=== PATIENT | female | born 1950 | race Caucasian/White ===

== ENCOUNTER 2016-07-12 18:50 | Emergency (ER) | payer MEDICAID ==
[2015-07-02 16:28] VITALS: BMI 29.3
[~2016-07-12 18:50] MED LIST: BAYER CHEWABLE81 MG PO; CARAFATE1 G PO; CELEXA20 MG PO; FANAPT1 MG PO; HYDROCODONE-APA1 TAB PO; KLONOPIN0.5 MG PO; KLONOPIN1 MG PO; LIPITOR40 MG PO; NITROSTAT0.4 MG SL; PLAVIX75 MG PO; PRILOSEC20 MG PO
== END 2016-07-12 21:15 | disposition home or self-care (01) ==
LOC: D.ER 18:50
DX: M54.5 Low back pain (principal); M54.10 Radiculopathy, site unspecified; M62.830 Muscle spasm of back; J44.9 Chronic obstructive pulmonary disease, unspecified

== ENCOUNTER 2016-10-05 19:46 | Emergency (ER) | payer MEDICARE ==
[2015-07-02 16:28] VITALS: BMI 29.3
[2016-10-05 20:50] LABS: BASOPHILS 0.2 % (0-2); EOSINOPHILS 4.6 % (0-7); HEMATOCRIT 38.3 % (36.0-48.0); HEMOGLOBIN 12.9 g/dL (12-16); IMMATURE GRANULOCYTES 0.2 % (0-5); MCH 32.6 pg (26.0-34.0); MCHC 33.7 g/dL (31.0-37.0); MCV 96.7 fL (80.0-100.0); MEAN PLATELET VOLUME 10.6 fL (7.4-10.4); MONOCYTES 9.2 % (2-11); NEUTROPHILS 45.8 % (40-80); PLATELET COUNT 145 10x3/uL (130-400); RBC 3.96 10x6/uL (4.00-5.40); RDW 13.9 % (11.5-14.5); WBC 5.2 10x3/uL (4.8-10.8)
[2016-10-05 21:31] LABS: CALCIUM 8.9 mg/dL (8.5-10.1); CARBON DIOXIDE 27.2 mmol/L (21.0-32.0); CHLORIDE - SERUM 106 mmol/L (98-107); POTASSIUM - SERUM 4.2 mmol/L (3.5-5.1); SODIUM 144 mmol/L (136-145); UREA NITROGEN 15 mg/dL (7-18); eGFR NON AFRICAN AMERICAN 59 mL/min (90-120)
[2016-10-05 21:35] LABS: CALC OSMOLALITY 289 mosm/kg (275-300); GLUCOSE 142 mg/dL (74-106); TROPONIN-I < 0.017 ng/mL (0.000-0.060)
== END 2016-10-05 21:50 | disposition home or self-care (01) ==
LOC: D.ER 19:46
PROVIDERS: Emergency Medicine; Nurse Practitioner Acute Care
DX: K59.00 Constipation, unspecified (principal); M54.5 Low back pain; J44.9 Chronic obstructive pulmonary disease, unspecified; F17.200 Nicotine dependence, unspecified, uncomplicated

== ENCOUNTER → 2016-11-10 16:37 | Outpatient (CLI) | payer MEDICARE ==
[2015-07-02 16:28] VITALS: BMI 29.3
== END | disposition home or self-care (01) ==
LOC: D.RAD 16:37
DX: M25.512 Pain in left shoulder (principal)

== ENCOUNTER → 2016-12-30 17:03 | Outpatient (CLI) | payer MEDICARE ==
[2015-07-02 16:28] VITALS: BMI 29.3
== END | disposition home or self-care (01) ==
LOC: D.MAMMO 13:45
DX: Z12.31 Encounter for screening mammogram for malignant neoplasm of breast (principal)

== ENCOUNTER 2017-01-19 12:39 | Emergency (ER) | payer MEDICARE ==
[2015-07-02 16:28] VITALS: BMI 29.3
[2017-01-19 13:33] LABS: APPEARANCE CLEAR (CLEAR); BILIRUBIN NEGATIVE (NEGATIVE); COLOR YELLOW (YELLOW); GLUCOSE NEGATIVE (NEGATIVE); KETONE NEGATIVE (NEGATIVE); LEUKOCYTE ESTERASE NEGATIVE (NEGATIVE); NITRITE NEGATIVE (NEGATIVE); PROTEIN NEGATIVE (NEGATIVE); UROBILINOGEN NORMAL (NORMAL)
[2017-01-19 13:36] LABS: BASOPHILS 0.4 % (0-2); EOSINOPHILS 4.3 % (0-7); HEMATOCRIT 37.4 % (36.0-48.0); HEMOGLOBIN 12.8 g/dL (12-16); IMMATURE GRANULOCYTES 0.2 % (0-5); LYMPHOCYTES 39.1 % (15-50); MCH 32.5 pg (26.0-34.0); MCHC 34.2 g/dL (31.0-37.0); MCV 94.9 fL (80.0-100.0); MEAN PLATELET VOLUME 10.6 fL (7.4-10.4); PLATELET COUNT 130 10x3/uL (130-400); RBC 3.94 10x6/uL (4.00-5.40); WBC 5.1 10x3/uL (4.8-10.8)
[2017-01-19 13:59] LABS: ALBUMIN 3.9 g/dL (3.4-5.0); ANION GAP 13.9 mmol/L (8-16); BILIRUBIN - TOTAL 0.35 mg/dL (0.2-1.3); CARBON DIOXIDE 26.6 mmol/L (21.0-32.0); POTASSIUM - SERUM 4.5 mmol/L (3.5-5.1); PROTEIN - SERUM 6.9 g/dL (6.4-8.2)
== END 2017-01-19 12:40 | disposition home or self-care (01) ==
LOC: D.ER 12:39
PROVIDERS: Emergency Medicine
DX: R10.9 Unspecified abdominal pain (principal); K43.9 Ventral hernia without obstruction or gangrene; F17.200 Nicotine dependence, unspecified, uncomplicated; J44.9 Chronic obstructive pulmonary disease, unspecified

== ENCOUNTER 2017-01-27 05:42 | Day surgery (SDC) | payer MEDICARE ==
[~2017-01-27] VITALS: Ht 152.4 cm; Wt 77.3 kg
--- NOTE | ~2017-01-27 | OP ---
PATIENT NAME: CL DO MEDICAL RECORD: [id number] :52 [facility] DATE: SURGEON: KAN MEJIA MD DATE OF OPERATION: 01/27/2017 REFERRED BY: Ms. Charito Engle APN. PREOPERATIVE DIAGNOSIS: Severe upper abdominal and epigastric pain out of proportion to findings on physical examination and CT scan. ADDITIONAL DIAGNOSIS: History of numerous colonic polyps in the past with most recent colonoscopy over 10 years ago by patient's history. OPERATION PERFORMED: EGD with multiple gastric antral biopsies and colonoscopy to cecum. OPERATIVE FINDINGS: Very mild to minimal atrophic appearing gastritis without bleeding or ulceration or other lesions, no significant hiatal hernia, no evidence of esophagitis or reflux, mild biliary reflux into the gastric antrum was noted and note, also the patient is status post cholecystectomy. At colonoscopy, the patient was noted to have a few scattered diverticular predominantly in the left and sigmoid colon and a lipoma of the ileocecal valve. SURGEON: Kan Mejia MD ANESTHESIA: TIVA per DEV TECHNICAL MGR. PREOPERATIVE NOTE: Ms. Do is a 66-year-old white female patient with numerous medical and psychiatric problems. She is a chronic pain patient on hydrocodone therapy for spinal pain followed by Dr. Kingsley. She has had a prior laparoscopic cholecystectomy and for an unknown period of time several months at least, the patient has had pain in the epigastric area and has been told by various practitioners that she had a hernia. CT scanning was done which did not reveal a hernia and on physical examination, I could not definitely detect the hernia, but thought that she might have just diastasis recti in the epigastrium. I recommended that she have an EGD and a colonoscopy before making a decision as to whether or not laparoscopy was indicated, etc. DESCRIPTION OF PROCEDURE: Under TIVA, the patient was placed in lateral decubitus position. The pharynx was sprayed with benzocaine and the Olympus gastroscope introduced per mouth, it was passed through the pharynx and the esophagus without difficulty. There was no abnormality of the esophagus seen. There was no hiatus hernia present or evidence of reflux or esophagitis. No rings, ulcers, masses, etc. The scope was passed on into the stomach and the stomach, insufflated. The scope retroflexed and again there was no abnormality of the esophagogastric junction, cardia or fundus of the stomach. The scope was straightened and the gastric antrum and body examined. There was some lack of rugal folds and some mild atrophic changes without evidence of any bleeding or ulceration. There was bile reflux noted through a fairly patulous duodenum. The scope was advanced across the duodenal valve into the duodenum and advanced to the third portion and then withdrawn. No abnormalities of the duodenum or duodenal bulb or pyloric channel were seen. Back in the stomach, multiple antral gastric biopsies were obtained for histology and testing for Helicobacter pylori. After that, the insufflated air was withdrawn and the scope removed. OPERATIVE REPORT [id number] CL DO The patient was then turned and kept in lateral decubitus position, digital rectal examination was performed, which was normal. The Olympus colonoscope was introduced and advanced to the cecum. Fairly intense spasm in the sigmoid colon necessitated intravenous glucagon, but the patient's prep fortunately was excellent. She had very minimal scattered diverticulosis, particularly in the sigmoid and left colon, and really no other abnormalities were identified other than an ileocecal valve lipoma. There was no bleeding or any other mucosal lesions. Withdrawal time was approximately 15 minutes. ASSESSMENT: The patient's abdominal pain is still unexplained; however, on physical examination again the upper abdomen while she was under anesthesia and that times when she was struggling and coughing and performing Valsalva maneuvers, I thought that I did detect an epigastric hernia or a lump or mass in the epigastrium, possibly related to her prior laparoscopic incision. PLAN: I recommend that the patient undergo a laparoscopic examination with possibly mesh repair of incisional hernia and/or other indicated procedures. TRANSINT:[id number] Voice Confirmation ID: [id number] DOCUMENT ID: [id number] CC: Charito Engle APN, [facility] KAN MEJIA MD CC: [id number] DICTATION DATE: 01/27/17 0847 MACHINE SILK SCREEN PRINTER: 01/27/17 1245 [facility] 01/27/17 [facility] [address] [place] [address]
[2017-01-27] MEDS ORDERED: OXYBUTYNIN CHLOR5 MG PO (06:46)
[2017-01-27] MEDS ORDERED: ZOFRAN4 MG PO (06:47)
[2017-01-27] MEDS ORDERED: ATIVAN1 MG PO (06:47)
[2017-01-27] MEDS ORDERED: EMLA CREAM 30 G30 G1 TOPICAL (06:49)
[2017-01-27 06:56] VITALS: BP 110/70; Ht 152.4 cm; Wt 77.3 kg
[2017-01-27 06:56] LABS: ANION GAP 14.2 mmol/L (8-16); CALCIUM 9.6 mg/dL (8.5-10.1); CARBON DIOXIDE 24.5 mmol/L (21.0-32.0); CREATININE - SERUM 1.1 mg/dL (0.6-1.3); POTASSIUM - SERUM 3.7 mmol/L (3.5-5.1)
[2017-01-27 07:05] LABS: BASOPHILS 0.2 % (0-2); EOSINOPHILS 4.1 % (0-7); HEMATOCRIT 39.4 % (36.0-48.0); HEMOGLOBIN 13.8 g/dL (12-16); IMMATURE GRANULOCYTES 0.2 % (0-5); LYMPHOCYTES 40.4 % (15-50); MCV 94.3 fL (80.0-100.0); MEAN PLATELET VOLUME 11.1 fL (7.4-10.4); NEUTROPHILS 45.1 % (40-80); PLATELET COUNT 126 10x3/uL (130-400); RBC 4.18 10x6/uL (4.00-5.40); RDW 12.9 % (11.5-14.5); WBC 5.9 10x3/uL (4.8-10.8)
--- NOTE | 2017-01-27 09:55 | NUR ---
IV DC WITH CATHER TIP INTACT
[2017-01-28 07:41] LABS: AMYLASE - SERUM 60 U/L (25-115); LIPASE 212 U/L (73-393)
== END 2017-01-27 10:23 | disposition home or self-care (01) ==
LOC: D.OPS 05:42
PROVIDERS: Anesthesiology; Surgery
DX: R10.11 Right upper quadrant pain (principal); R10.13 Epigastric pain; D17.79 Benign lipomatous neoplasm of other sites; K57.30 Diverticulosis of large intestine without perforation or abscess without bleeding; F17.200 Nicotine dependence, unspecified, uncomplicated; J45.909 Unspecified asthma, uncomplicated; Z95.5 Presence of coronary angioplasty implant and graft; G47.30 Sleep apnea, unspecified; J44.9 Chronic obstructive pulmonary disease, unspecified; M81.0 Age-related osteoporosis without current pathological fracture; Z01.812 Encounter for preprocedural laboratory examination

== ENCOUNTER → 2017-02-06 14:22 | Outpatient (CLI) | payer MEDICARE ==
[2017-01-27 06:56] VITALS: BMI 33.2
[~2017-02-06 14:22] MED LIST changes: +ATIVAN1 MG PO; +EMLA CREAM 30 G30 G1 TOPICAL; +OXYBUTYNIN CHLOR5 MG PO; +ZOFRAN4 MG PO
== END | disposition home or self-care (01) ==
LOC: D.NM 14:22
DX: R10.9 Unspecified abdominal pain (principal); R11.2 Nausea with vomiting, unspecified

== ENCOUNTER 2017-03-14 20:35 | Emergency (ER) | payer MEDICARE ==
[2017-01-27 06:56] VITALS: BMI 33.2
[2017-03-14 21:34] LABS: HEMATOCRIT 37.4 % (36.0-48.0); HEMOGLOBIN 12.6 g/dL (12-16); MCH 31.8 pg (26.0-34.0); MCHC 33.7 g/dL (31.0-37.0); MCV 94.4 fL (80.0-100.0); MEAN PLATELET VOLUME 10.8 fL (7.4-10.4); PLATELET COUNT 141 10x3/uL (130-400); RBC 3.96 10x6/uL (4.00-5.40); RDW 13.2 % (11.5-14.5); WBC 4.7 10x3/uL (4.8-10.8)
[2017-03-14 21:48] LABS: ALBUMIN 3.7 g/dL (3.4-5.0); ALKALINE PHOSPHATASE 112 U/L (46-116); ALT (SGPT) 24 U/L (10-68); CALC OSMOLALITY 274 mosm/kg (275-300); CALCIUM 9.1 mg/dL (8.5-10.1); CHLORIDE - SERUM 102 mmol/L (98-107); CREATININE - SERUM 1.1 mg/dL (0.6-1.3); GLUCOSE 93 mg/dL (74-106); POTASSIUM - SERUM 4.1 mmol/L (3.5-5.1); PROTEIN - SERUM 7.1 g/dL (6.4-8.2); SODIUM 138 mmol/L (136-145); UREA NITROGEN 11 mg/dL (7-18); eGFR NON AFRICAN AMERICAN 53 mL/min (90-120)
[2017-03-14 21:55] LABS: PRO BNP 84 pg/mL (0-125); TROPONIN-I < 0.017 ng/mL (0.000-0.060)
[2017-03-14 22:11] LABS: BASOPHILS 1 % (0-2); EOSINOPHILS 2 % (0-7); LYMPHOCYTES 51 % (15-50); MONOCYTES 5 % (2-11); NEUTROPHILS 31 % (40-80); PLATELET ESTIMATE NORMAL
[2017-03-14 22:12] LABS: PLATELET MORPHOLOGY GIANT PLTS PRESENT
== END 2017-03-14 22:55 | disposition home or self-care (01) ==
LOC: D.ER 20:35
PROVIDERS: Family Medicine
DX: J44.1 Chronic obstructive pulmonary disease with (acute) exacerbation (principal)

== ENCOUNTER 2017-03-30 21:09 | Emergency (ER) | payer MEDICARE ==
[2017-01-27 06:56] VITALS: BMI 33.2
== END 2017-03-30 23:19 | disposition home or self-care (01) ==
LOC: D.ER 21:09
DX: S16.1XXA Strain of muscle, fascia and tendon at neck level, initial encounter (principal); Y04.2XXA Assault by strike against or bumped into by another person, initial encounter; Y93.89 Activity, other specified; Y92.512 Supermarket, store or market as the place of occurrence of the external cause; J44.9 Chronic obstructive pulmonary disease, unspecified; F17.200 Nicotine dependence, unspecified, uncomplicated

== ENCOUNTER 2017-06-18 13:39 | Emergency (ER) | payer MEDICARE, MEDICAID ==
[2017-01-27 06:56] VITALS: BMI 33.2
[2017-06-18 14:51] LABS: BASOPHILS 0.3 % (0-2); EOSINOPHILS 5.4 % (0-7); HEMATOCRIT 36.9 % (36.0-48.0); HEMOGLOBIN 12.5 g/dL (12-16); IMMATURE GRANULOCYTES 0.3 % (0-5); LYMPHOCYTES 46.3 % (15-50); MCHC 33.9 g/dL (31.0-37.0); MCV 94.4 fL (80.0-100.0); MEAN PLATELET VOLUME 10.3 fL (7.4-10.4); MONOCYTES 8.2 % (2-11); NEUTROPHILS 39.5 % (40-80); PLATELET COUNT 113 10x3/uL (130-400); RBC 3.91 10x6/uL (4.00-5.40); RDW 13.4 % (11.5-14.5); WBC 3.5 10x3/uL (4.8-10.8)
[2017-06-18 15:11] LABS: ALBUMIN 3.7 g/dL (3.4-5.0); ANION GAP 10.8 mmol/L (8-16); BILIRUBIN - TOTAL 0.41 mg/dL (0.2-1.3); CALCIUM 8.6 mg/dL (8.5-10.1); CARBON DIOXIDE 28.6 mmol/L (21.0-32.0); CREATININE - SERUM 1.1 mg/dL (0.6-1.3); POTASSIUM - SERUM 4.4 mmol/L (3.5-5.1)
[2017-06-18 15:35] LABS: CREATINE KINASE 57 UL (21-215); PRO BNP 41 pg/mL (0-125)
[2017-06-18 15:40] LABS: TROPONIN-I < 0.017 ng/mL (0.000-0.060)
[2017-06-18 15:58] LABS: APPEARANCE HAZY (CLEAR); BILIRUBIN NEGATIVE (NEGATIVE); COLOR YELLOW (YELLOW); GLUCOSE NEGATIVE (NEGATIVE); KETONE NEGATIVE (NEGATIVE); NITRITE NEGATIVE (NEGATIVE); PROTEIN NEGATIVE (NEGATIVE); SPECIFIC GRAVITY 1.025 (1.005-1.020); UROBILINOGEN NORMAL (NORMAL)
[2017-06-18 16:00] LABS: BACTERIA MODERATE /hpf (NONE SEEN); MUCUS <1+ /lpf (NONE SEEN); RED CELLS - URINE 0-5 /hpf (0-5)
[2017-06-18 16:01] LABS: UDS - AMPHET NEGATIVE QUAL (NEGATIVE); UDS - BARB NEGATIVE QUAL (NEGATIVE); UDS - BENZO NEGATIVE QUAL (NEGATIVE); UDS - COCAINE NEGATIVE QUAL (NEGATIVE); UDS - OPIATE POSITIVE QUAL (NEGATIVE); UDS - PCP NEGATIVE QUAL (NEGATIVE); UDS - THC NEGATIVE QUAL (NEGATIVE)
== END 2017-06-18 19:39 | disposition home or self-care (01) ==
LOC: D.ER 13:39
PROVIDERS: Family Medicine; Nurse Practitioner Family
DX: N39.0 Urinary tract infection, site not specified (principal); R42 Dizziness and giddiness; R00.1 Bradycardia, unspecified; J44.9 Chronic obstructive pulmonary disease, unspecified

== ENCOUNTER 2017-08-20 09:46 | Emergency (ER) | payer MEDICARE ==
[2017-01-27 06:56] VITALS: BMI 33.2
[2017-08-20 10:14] LABS: BASOPHILS 0.4 % (0-2); EOSINOPHILS 5.9 % (0-7); HEMATOCRIT 36.7 % (36.0-48.0); HEMOGLOBIN 12.2 g/dL (12-16); IMMATURE GRANULOCYTES 0.2 % (0-5); LYMPHOCYTES 40.8 % (15-50); MCH 31.8 pg (26.0-34.0); MCHC 33.2 g/dL (31.0-37.0); MCV 95.6 fL (80.0-100.0); MEAN PLATELET VOLUME 9.9 fL (7.4-10.4); NEUTROPHILS 39.7 % (40-80); RBC 3.84 10x6/uL (4.00-5.40); RDW 13.6 % (11.5-14.5); WBC 4.8 10x3/uL (4.8-10.8)
[2017-08-20 10:28] LABS: ALBUMIN 3.7 g/dL (3.4-5.0); ALKALINE PHOSPHATASE 102 U/L (46-116); ALT (SGPT) 24 U/L (10-68); CALC OSMOLALITY 280 mosm/kg (275-300); CALCIUM 9.6 mg/dL (8.5-10.1); CARBON DIOXIDE 28.4 mmol/L (21.0-32.0); CHLORIDE - SERUM 106 mmol/L (98-107); GLUCOSE 97 mg/dL (74-106); POTASSIUM - SERUM 4.1 mmol/L (3.5-5.1); PROTEIN - SERUM 7.2 g/dL (6.4-8.2); SODIUM 141 mmol/L (136-145); UREA NITROGEN 13 mg/dL (7-18); eGFR NON AFRICAN AMERICAN 59 mL/min (90-120)
[2017-08-20 10:39] LABS: CHOL - HDL RATIO 5.6 ratio (2.3-4.1); CHOLESTEROL, TOTAL 218 mg/dL (0-200); CKMB 1.2 U/L (0.0-3.6); CREATINE KINASE 67 UL (21-215); HDL CHOLESTEROL 39 mg/dL (32-96); LDL CHOLESTEROL 149 mg/dL (0-100); LDL-HDL RATIO 3.8 ratio (1.5-3.5); TRIGLYCERIDE 151 mg/dL (30-200); TROPONIN-I < 0.017 ng/mL (0.000-0.060)
[2017-08-20 10:44] LABS: PLATELET COUNT 138 10x3/uL (130-400)
== END 2017-08-20 14:58 | disposition home or self-care (01) ==
LOC: D.ER 09:46
PROVIDERS: Emergency Medicine
DX: R07.9 Chest pain, unspecified (principal); J44.9 Chronic obstructive pulmonary disease, unspecified

== ENCOUNTER → 2018-01-01 08:38 | Outpatient (CLI) | payer MEDICARE ==
[~2018-01-01] VITALS: Ht 152.4 cm; Wt 75.0 kg
--- NOTE | ~2018-01-01 | HEMODYNAMI ---
PATIENT:CL DO MEDICAL RECORD: [id number] : 52 LOCATION:[facility] ADMISSION DATE: 01/01/18 Generatedon:01/01/201810:50 Patient name: CL DO Patient #: [id number] SSN: : 1950 Date of study: 01/01/2018 Page: Of Hemodynamic Procedure Report Patient Data Patient Demographics Procedure consent was obtained First Name: CL Gender: Female Last Name: ERNESTINA : 1950 [facility] Initial: J Age: 67 year(s) Patient #: [id number] Race: Additional ID: [id number] Contact details Address: [place] [address] [facility] [place] [facility] Zip code: [address] Past Medical History History of disease Date Diagnosis Comments CAD Allergies Allergen Reaction Date Comments Reported Other allergy 09/29/2014 Latex, Morphine, Dilaudid Admission Admission Data Admission Date: 01/01/2018 Admission Time: 8:38 Procedure Procedure Types Cath Procedure Diagnostic Procedure C [facility] w/Coronaries Procedure Description Procedure Date Procedure Date: 01/01/2018 Procedure Start Time: 10:41 Procedure End Time: 10:50 Procedure Staff Name Function Josias Acevedo MD Performing Physician Laura Burden RT Monitor Cheko Pope RT Scrub Javid Bates RN Nurse Procedure Data Cath Procedure Fluoroscopy Diagnostic fluoroscopy Total fluoroscopy Time: 0.8 time: 0.8 min min Diagnostic fluoroscopy Total fluoroscopy dose: 139 dose: 139 mGy mGy Contrast Material Contrast Material Type Amount (ml) Isovue 300 63 Entry Location Entry Primary Successful Side Size Upsize Upsize Entry Closure Succes sful Closure Location (Fr) 1 (Fr) 2 (Fr) Remarks Device Remarks Femoral Right 5 Fr Exoseal artery Estimated blood loss: 5 ml Diagnostic catheters Device Type Used For End Catheter Placement MULTIPACK Pigtail 5 Fr LV Angiography catheter MULTIPACK JL 4.0 5Fr Left Coronary catheter Angiography MULTIPACK 3DRC 5Fr Right Coronary catheter Angiography Procedure Complications No complications Procedure Medications Medication Administration Route Dosage Oxygen etCO2 Nasal cannula 2 l/min Heparin Flush Bag added to field 2 bags (1000units/500ml NS) Lidocaine 2% added to field 20 0.9% NaCl I.V. 100 ml/hr Versed I.V. 2 mg Fentanyl I.V. 100 mcg Versed I.V. 1 mg Fentanyl I.V. 100 mcg Hemodynamics Rest Heart Rate: 62 (bpm) Snapshots Pre Cath Intra NCS Post Cath Vital Signs Time Heart Resp SPO2 etCO2 NIBP (mmHg) Rhythm Pain Sedation Rate (ipm) (%) (mmHg) Status Level (bpm) 10:07:46 63 13 99 28.6 120/79(94) NSR 0 (11) 10(A) , No pain 10:12:07 64 22 98 28.6 110/74(87) NSR 0 (11) 10(A) , No pain 10:16:29 67 15 97 38.3 117/58(111) NSR 0 (11) 10(A) , No pain 10:20:47 66 11 98 33.1 111/61(92) NSR 0 (11) 10(A) , No pain 10:25:03 68 23 96 25.5 105/77(87) NSR 0 (11) 10(A) , No pain 10:29:17 69 11 97 38.3 103/71(87) NSR 0 (11) 10(A) , No pain 10:33:27 70 11 97 39.1 104/70(88) NSR 0 (11) 10(A) , No pain 10:37:39 75 10 97 31.6 96/69(83) NSR 0 (11) 10(A) , No pain 10:41:49 72 12 96 23.3 93/68(81) NSR 0 (11) 10(A) , No pain 10:45:59 75 14 95 53.4 100/68(93) NSR 0 (11) 9(A) , No pain 10:50:08 85 14 94 42.9 104/74(93) NSR 0 (11) 10(A) , No pain Medications Time Medication Route Dose Verified Delivered Reason Notes Effe ctiveness by by 10:14:31 Oxygen etCO2 2 Buffie Buffie used for Nasal l/min Jana RN Jana metal engineering process worker cannula 10:15:06 Heparin Flush added 2 Buffie Buffie used for Bag to bags Bates RN Jana metal engineering process worker (1000units/500ml field NS) 10:15:56 Lidocaine 2% added 20ml Buffie Buffie used for to vial Jana RN Jana metal engineering process worker field 10:24:36 0.9% NaCl I.V. 100 Buffie Buffie Per ml/hr Jana RN Jana RN physician 10:40:40 Versed I.V. 2 mg Buffie Buffie for Bates RN Jana RN sedation 10:40:46 Fentanyl I.V. 100 Buffie Buffie for mcg Bates RN Jana RN sedation 10:45:46 Versed I.V. 1 mg Buffie Buffie for Bates RN Jana RN sedation 10:45:50 Fentanyl I.V. 100 Buffie Buffie for mcg Jana RN Jana RN sedation Procedure Log Time Note 9:53:06 Cheko Pope RT(R) sent for patient. Start room use. 9:53:07 Time tracking: Regular hours (M-F 7:00 - 5:00) 9:53:11 Plan of Care:Hemodynamics will remain stable., Cardiac rhythm will remain stable., Comfort level will be maintained., Respiratory function will remain adequate., Patient/ family verbilizes understanding of procedure., Procedure tolerated without complication., Recovers from procedure without complications.. 9:58:12 Patient received from Pre/Post Procedure Room to [facility] 3 Alert and oriented. Tansferred to table in Supine position. 9:58:13 Warm blankets applied, and breann hugger turned on for patient comfort. 9:58:14 Correct patient and procedure confirmed by team. 9:58:15 Signed procedure consent form obtained from patient. 9:58:16 ECG and BP/O2 sat monitors applied to patient. 9:58:20 Previous problem with sedation/anesthesia? No ? 9:58:21 Snore? Yes 9:58:21 Sleep apnea? Yes 9:58:23 Deviated septum? No 9:58:23 Opens mouth fully? Yes 9:58:24 Sticks out tongue? Yes 9:58:36 Airway obstruction? Yes COPD, EMPHYSEMA 9:58:40 Dentures? Yes OUT 10:06:31 Vital chart was started 10:06:32 Baseline sample Acquired. 10:06:35 Rhythm: sinus rhythm 10:06:37 Full Disclosure recording started 10:08:57 Baseline sample Acquired. 10:14:31 Oxygen 2 l/min etCO2 Nasal cannula was administered by Javid Bates RN; used for procedure; 10:15:06 Heparin Flush Bag (1000units/500ml NS) 2 bags added to field was administered by Javid Bates RN; used for procedure; 10:15:56 Lidocaine 2% 20ml vial added to field was administered by Javid Bates RN; used for procedure; 10:17:07 Zero performed for pressure channel P1 10:17:12 Zero performed for pressure channel P1 10:17:16 Zero performed for pressure channel P1 10:17:18 Zero performed for pressure channel P1 10:17:21 Zero performed for pressure channel P1 10:17:23 Zero performed for pressure channel P1 10:17:36 H&P Date Dictated: 12/29/2017 Within 30 days and on chart., H&P Addendum completed by physician on day of procedure. (MUST COMPLETE FOR ALL OUTPATIENTS). 10:17:38 Pre-procedure instructions explained to patient. 10:17:38 Pre-op teaching completed and patient verbalized understanding. 10:17:41 Family in patients room. 10:17:43 Patient NPO since Midnight. 10:17:50 Is the patient allergic to Iodine/contrast media? Yes. 10:17:51 Was the patient premedicated? Yes 10:17:52 Is patient on blood thinner?No 10:18:00 Patient diabetic? No. 10:18:05 Pre procedure: right dorsailis pedis pulse 2+ Normal; easily identifiable; not easily obliterated 10:18:07 Patient pain scale 0/10 ?. 10:18:15 IV patent on arrival in left forearm with 0.9% NaCl at [facility]. 10:18:17 Lab results completed and on chart. 10:18:21 Right groin area was prepped with chlora-prep and draped in sterile fashion 10:18:22 Alarms reviewed by R. N. 10:18:22 Sharps counted by scrub and verified by R.N. 10:18:25 Use device set Femoral Dx 10:18:26 ACIST Syringe (59315) opened to sterile field. 10:18:27 Bag Decanter (2002) opened to sterile field. 10:18:27 Medline Cath Pack ([id number]) opened to sterile field. 10:18:28 DIAGNOSTIC WIRE .035 260cm J wire (219350) opened to sterile field. 10:18:29 ACIST Hand Control (98391) opened to sterile field. 10:18:29 ACIST Manifold (35403) opened to sterile field. 10:18:30 DIAGNOSTIC Multipack 5Fr catheter set ([id number]) opened to sterile field. 10:18:30 Tegaderm 4 x 4 (1626W) opened to sterile field. 10:18:32 SHEATH Prelude 5Fr 0.035 (JTS-4T-79-035) opened to sterile field. 10:24:36 0.9% NaCl 100 ml/hr I.V. was administered by Javid Bates RN; Per physician; 10:39:18 Final Timeout: patient, procedure, and site verified with staff and physician. All members of the team are in agreement. 10:39:21 Right groin site verified by team. 10:39:25 Physical assessment completed. ASA score P 2 - A patient with mild systemic disease as per Josias Acevedo MD. 10:39:29 Sedation plan: IV Moderate Sedation Medication:Versed, Fentanyl 10:40:40 Versed 2 mg I.V. was administered by Javid Bates RN; for sedation; 10:40:46 Fentanyl 100 mcg I.V. was administered by Javid Bates RN; for sedation; 10:41:45 Procedure started. 10:41:48 Local anesthetic to right femoral artery with Lidocaine 2% by Josias Acevedo MD.INITIAL ACCESS ONLY 10:42:35 A 5 Fr sheath was inserted into the Right Femoral artery 10:42:55 A MULTIPACK Pigtail 5 Fr catheter was advanced over the wire and used for LV Angiography. 10:43:23 LV gram done using AMBRIZ 10:43:23 LV hemodynamics recorded. 10:43:26 Injector settings: Ml/sec: 10, Volume: 20, 10:43:36 EF : 60 % 10:43:37 Catheter removed. 10:43:58 A MULTIPACK JL 4.0 5Fr catheter was advanced over the wire and used for Left Coronary Angiography. 10:45:16 Catheter removed. 10:45:46 Versed 1 mg I.V. was administered by Javid Bates RN; for sedation; 10:45:50 Fentanyl 100 mcg I.V. was administered by Javid Bates RN; for sedation; 10:46:04 A MULTIPACK 3DRC 5Fr catheter was advanced over the wire and used for Right Coronary Angiography. 10:46:10 Catheter removed. 10:46:13 EXOSEAL 5Fr (EX500) opened to sterile field. 10:46:22 Sheath removed intact; hemostasis achieved with Exoseal to the Right Femoral artery. 10:46:31 Procedure ended.(Physican Out) 10:46:40 Fluoroscopy time 00.80 minutes. 10:46:45 Fluoroscopy dose: 139 mGy 10:46:45 Flurop Dose total: 139 10:46:48 Contrast amount:Isovue 300 63ml. 10:46:49 Sharps counted by scrub and verified by R.N. 10:46:51 Insertion/operative site no bleeding no hematoma. 10:46:54 Post-op/insertion site Right Femoral artery dressed using a 4 x 4 and Tegaderm. 10:46:56 Post right femoral artery:stable, clean and dry 10:46:58 Post Procedure Pulses reassessed and unchanged 10:47:00 Post-procedure physical assessment completed. ASA score P 2 - A patient with mild systemic disease as per Josias Acevedo MD. 10:47:03 Post procedure rhythm: unchanged. 10:47:05 Estimated blood loss: 5 ml 10:47:07 Post procedure instruction explained to patient.Patient verbalizes understanding. 10:47:07 Patient needs reinforcement of post procedure teaching. 10:47:21 Procedure Complication : No complications 10:47:23 See physician's report for complete and final results. 10:47:38 Procedure and supply charges have been captured, reviewed, submitted and are correct. 10:50:16 Vital chart was stopped 10:50:18 Report given to Pre/Post Procedure Room. 10:50:20 Patient transfered to Pre/Post Procedure Room with Stretcher. 10:50:26 Procedure ended. 10:50:26 Full Disclosure recording stopped 10:50:31 End room use (Document Last) Device Usage Item Name Manufacture Quantity Catalog Number Hospital Part Current M inimal Lot# / Charge Number Stock Stock Serial# Code ACIST Syringe Acist 1 97531 279960 384254 484046 2 0 (30655) [employer] Bag Decanter Microtek 1 532163 33430 664845 5 () Medical Inc. Medline Cath Cardinal 1 [id number] 197222 48321 089001 5 Pack Health ([id number]) DIAGNOSTIC WIRE [facility] [place] 1 017556 051728 534600 547992 3 0 .035 260cm J wire (691715) ACIST Hand Acist 1 70901 850261 755555 116172 5 Control (23639) Medical Systems Inc ACIST Manifold Acist 1 87438 309814 297331 246375 5 (70639) Medical [employer] Inc DIAGNOSTIC Cardinal 1 [id number] 005606 51907 160647 3 0 Multipack 5Fr Health catheter set (FT9690) Tegaderm 4 x 4 3M 1 1626W 876094 814443 036976 5 (1626W) SHEATH Prelude Merit 1 [id number] 392980 641306 342239 5 5Fr 0.035 Medical ([id number]-[id number]) MULTIPACK Cardinal 1 994151 5 Pigtail 5 Fr Health catheter MULTIPACK JL Cardinal 1 [id number] 5 4.0 5Fr Health catheter MULTIPACK 3DRC Cardinal 1 [id number] 5 5Fr catheter Health EXOSEAL 5Fr Cardinal 1 EX500 624909 229243 099689 1 0 (EX500) Health Signature Audit Baldwin Stage Time Signature Unsigned Intra-Procedure 01/01/2018 Laura 10:50:40 AM Counts RT(R) Signatures Monitor : Laura Signature : Counts RT Date : Time : [id number] [place] [address]
--- NOTE | ~2018-01-01 | OP ---
PATIENT NAME: CL DO MEDICAL RECORD: [id number] :52 LOCATION:[facility] ADMISSION DATE: SURGEON: VASYL SAHA MD DATE OF OPERATION: 01/01/2018 PROCEDURES: 1. Left heart catheterization. 2. Selective coronary angiography. 3. Left ventriculogram. PROCEDURE IN DETAIL: After informed consent was obtained and after a detailed description of risks, benefits as well as alternative therapies, the patient elected to proceed with angiogram and heart catheterization. The right femoral area was prepped and draped in normal sterile fashion. Right femoral artery was cannulated via modified Seldinger technique with placement of 5-Upper Sorbian sheath. All catheters exchanged through this sheath. FINDINGS: Left ventriculogram was performed in standard 30-degree AMBRIZ view, reveals good cardiac wall motion throughout all segments. Overall ejection fraction estimated at 55%. SELECTIVE CORONARY ANGIOGRAPHY: 1. Left main is with no significant angiographic disease. 2. Left anterior descending has previously placed stents, these are widely patent with no significant restenosis. No disease elsewise at the LAD or its branches. 3. Left circumflex has moderate irregularities, but no flow-limiting stenosis. 4. Right coronary has moderate irregularities, but no flow-limiting stenosis. OVERALL IMPRESSION: Wide patency of the previously placed stents in the LAD. No significant disease elsewise. Continue medical management of the coronary artery disease and cardiac risk factors. TRANSINT:[id number] Voice Confirmation ID: [id number] DOCUMENT ID: [id number] VASYL SAHA MD CC: [id number] DICTATION DATE: 02/09/18 1146 LICENSED NURSING ASSISTANT: 02/09/18 1152 DEP CLI 01/01/18 [place] [id number]
[~2018-01-01 08:38] MED LIST changes: +HYDROCODON-ACE1 EAC7 PO; +PROTONIX40 MG PO
[2018-01-01 09:17] VITALS: BP 111/75; Ht 152.4 cm; Wt 75.0 kg
[2018-01-01 09:49] LABS: BASOPHILS 0.2 % (0-2); EOSINOPHILS 9.9 % (0-7); HEMATOCRIT 37.7 % (36.0-48.0); HEMOGLOBIN 12.9 g/dL (12-16); IMMATURE GRANULOCYTES 0.2 % (0-5); LYMPHOCYTES 42.3 % (15-50); MCH 32.4 pg (26.0-34.0); MCHC 34.2 g/dL (31.0-37.0); MCV 94.7 fL (80.0-100.0); MEAN PLATELET VOLUME 10.8 fL (7.4-10.4); MONOCYTES 10.4 % (2-11); PLATELET COUNT 141 10x3/uL (130-400); RBC 3.98 10x6/uL (4.00-5.40); RDW 13.7 % (11.5-14.5); WBC 4.2 10x3/uL (4.8-10.8)
[2018-01-01 09:53] LABS: ANION GAP 9.3 mmol/L (8-16); CALCIUM 9.4 mg/dL (8.5-10.1); CARBON DIOXIDE 29.9 mmol/L (21.0-32.0); CREATININE - SERUM 1.2 mg/dL (0.6-1.3); POTASSIUM - SERUM 4.2 mmol/L (3.5-5.1)
== END | disposition home or self-care (01) ==
LOC: D.CATH 08:38
PROVIDERS: Internal Medicine Interventional Cardiology
DX: R06.00 Dyspnea, unspecified (principal); I25.10 Atherosclerotic heart disease of native coronary artery without angina pectoris

== ENCOUNTER 2018-03-13 22:19 | Emergency (ER) | payer MEDICARE ==
[2018-03-13 22:36] VITALS: Ht 152.4 cm
[2018-03-13 23:08] LABS: BASOPHILS 0.4 % (0-2); EOSINOPHILS 6.4 % (0-7); HEMATOCRIT 34.8 % (36.0-48.0); HEMOGLOBIN 11.7 g/dL (12-16); IMMATURE GRANULOCYTES 0.2 % (0-5); LYMPHOCYTES 49.7 % (15-50); MCHC 33.6 g/dL (31.0-37.0); MCV 95.1 fL (80.0-100.0); MEAN PLATELET VOLUME 10.6 fL (7.4-10.4); MONOCYTES 8.9 % (2-11); NEUTROPHILS 34.4 % (40-80); PLATELET COUNT 137 10x3/uL (130-400); RBC 3.66 10x6/uL (4.00-5.40); RDW 13.3 % (11.5-14.5); WBC 5.2 10x3/uL (4.8-10.8)
[2018-03-13 23:19] LABS: APPEARANCE CLEAR (CLEAR); BILIRUBIN NEGATIVE (NEGATIVE); COLOR YELLOW (YELLOW); GLUCOSE NEGATIVE (NEGATIVE); KETONE NEGATIVE (NEGATIVE); NITRITE NEGATIVE (NEGATIVE); PROTEIN NEGATIVE (NEGATIVE); UROBILINOGEN NORMAL (NORMAL)
[2018-03-13 23:27] LABS: ALBUMIN 3.6 g/dL (3.4-5.0); ALKALINE PHOSPHATASE 99 U/L (46-116); ALT (SGPT) 19 U/L (10-68); BILIRUBIN - TOTAL 0.34 mg/dL (0.2-1.3); CALC OSMOLALITY 280 mosm/kg (275-300); CALCIUM 9.1 mg/dL (8.5-10.1); CARBON DIOXIDE 26.9 mmol/L (21.0-32.0); CHLORIDE - SERUM 106 mmol/L (98-107); CREATININE - SERUM 0.9 mg/dL (0.6-1.3); GLUCOSE 89 mg/dL (74-106); PROTEIN - SERUM 6.9 g/dL (6.4-8.2); SODIUM 141 mmol/L (136-145); UREA NITROGEN 14 mg/dL (7-18); eGFR NON AFRICAN AMERICAN 66 mL/min (90-120)
[2018-03-13 23:29] LABS: INR 1.01 (0.85-1.17); PROTIME 12.9 SECONDS (11.6-15.0)
[2018-03-13 23:47] LABS: CKMB 1.2 U/L (0.0-3.6); CREATINE KINASE 55 UL (21-215); PRO BNP 116 pg/mL (0-125); TROPONIN-I < 0.017 ng/mL (0.000-0.060)
[2018-03-14] MEDS ORDERED: FUROSEMIDE20 MG PO (01:53)
[2018-03-14] MEDS ORDERED: K-TAB10 MEQ PO (01:53)
[2018-03-14 02:08] VITALS: BP 121/87
== END 2018-03-14 02:09 | disposition home or self-care (01) ==
LOC: D.ER 22:19
PROVIDERS: Emergency Medicine
DX: R60.0 Localized edema (principal); R06.02 Shortness of breath; Z86.73 Personal history of transient ischemic attack (TIA), and cerebral infarction without residual deficits; I10 Essential (primary) hypertension; F17.200 Nicotine dependence, unspecified, uncomplicated

== ENCOUNTER 2018-05-12 11:07 | Emergency (ER) | payer MEDICARE ==
[~2018-05-12] VITALS: Ht 152.4 cm; Wt 72.7 kg
[~2018-05-12 11:07] MED LIST changes: +FUROSEMIDE20 MG PO; +K-TAB10 MEQ PO
[2018-05-12 11:09] VITALS: Ht 152.4 cm; Wt 72.7 kg
[2018-05-12] MEDS ORDERED: LAMICTAL ODT50 MG PO ×2 (11:14→11:16)
[2018-05-12] MEDS ORDERED: ATIVAN1 MG ×2 (11:14→11:16)
[2018-05-12 14:58] VITALS: BP 108/072
== END 2018-05-12 15:02 | disposition home or self-care (01) ==
LOC: D.ER 11:07
DX: M79.674 Pain in right toe(s) (principal)

== ENCOUNTER 2018-07-20 07:05 | Day surgery (SDC) | payer MEDICARE ==
--- NOTE | 2018-07-19 10:28 | NUR ---
currently seeing counselor Lacy at Dr. Tejada's office
[2018-07-19 11:18] LABS: HEMATOCRIT 36.8 % (36.0-48.0); HEMOGLOBIN 12.4 g/dL (12-16); MCHC 33.7 g/dL (31.0-37.0); MCV 95.1 fL (80.0-100.0); MEAN PLATELET VOLUME 9.9 fL (7.4-10.4); RBC 3.87 10x6/uL (4.00-5.40); RDW 14.1 % (11.5-14.5); WBC 4.7 10x3/uL (4.8-10.8)
[~2018-07-20] VITALS: Ht 165.1 cm; Wt 75.3 kg
[~2018-07-20 07:05] MED LIST changes: +ALBUTEROL SULF8.5 GM INH; +ATIVAN1 MG; +B12 INJECTION; +LAMICTAL ODT50 MG PO; +PROTONIX20 MG PO
[2018-07-20 08:15] VITALS: BP 111/81; Ht 165.1 cm; Wt 75.3 kg
--- NOTE | 2018-07-20 14:05 | OP ---
PATIENT NAME: CL DO MEDICAL RECORD: [id number] :52 LOCATION:D.OPS ADMISSION DATE: SURGEON: HANK CAMEJO MD DATE OF OPERATION: 07/20/2018 SURGEON: Hank Camejo MD ANESTHESIA: TIVA by Pepito Jo CRNA DIAGNOSES: Urge urinary incontinence, fecal incontinence. PROCEDURE: InterStim stage I left S3 nerve root. FINDINGS: A left S3 nerve root have the best sensitivity and sensation in the vaginal and gluteal cleft region. ESTIMATED BLOOD LOSS: Minimal. CLINICAL HISTORY: This is a 67-year-old female, who has a long history of urge urinary incontinence as well as urge fecal incontinence. She had tried oxybutynin, which worked mildly to control both symptoms. She also developed dry mouth and constipation from it. Then I gave her samples of Myrbetriq 50 mg to try to control her urge urinary incontinence. This did not work at all. She comes today to have a trial of the InterStim. SHE IS ALLERGIC TO MORPHINE, DILAUDID AND VICODIN. She was given Ancef account resolution specialist to the OR. DESCRIPTION OF PROCEDURE: The patient was given IV sedation and placed in prone position. With fluoroscopy, I identified the role of sacral foramina and marked this out with a marking pen on the skin. The level of the S3 foramen was also marked out on the skin. We infiltrated the skin overlying the S2 foramen using lidocaine 1% with epinephrine. Spinal needles were then placed over the S2 foramen overlying skin into the S3 foramen. This was done on each side. Fluoroscopy in the transverse view revealed the depths of the needles to be adequate. We then tested each of the needles in turn. She was very sensitive, especially on the right side. However, when questioned as to where she was feeling the stimulation, she said that on the right side she was feeling it in the anal region. On the left side, she claims she was feeling the stimulation in the vaginal region. Therefore, we went with the left side. The spinal needle on the right side was removed. We made a small stab incision directly at the level of the spinal needle to increase the length of the incision on the skin. The stylet of the spinal needle was then removed and an extra-long stylet was placed. Once the extra-long stylet was in position, the needle of the spinal needle was removed. Over the extra-long stylet, we placed a trocar dilator. This has a radiopaque marker indicating the tip of the trocar level. We placed the trocar dilator so that the tip was about 2[address] deep into the sacral bone. The extra-long stylet and the trocar were then removed, leaving the dilator sheath in place. Through the lumen of the dilator sheath, we inserted the 4-channel electrode. There was a bit of curvature on this electrode and we aimed at so that the curvature would aim laterally. We then tested each of the 4 channels in turn. We had no response at channel 0. However, there was a good gely response from channel 1 to channel 3 and she was progressively more sensitive as we went up the channel ranks. Once this was in correct position, we then used the tunneling device to bring the distal end of the permanent electrode to a new incision site at the right iliac crest region. A 2 cm incision was made here and blunt dissection was used to create a OPERATIVE REPORT [id number] CL DO. The tunneling device brought the end of the temporary superintendent tests to this new site. Here, we connected this to the temporary test electrode. This was done by putting the one wire into another and tightening down the connecting screws with torque-limiting screwdrivers. Four such connecting screws were tightened down. A silicone boot was then placed around the connection and the ends of the boot were tied off using 2-0 Prolene ties to make the connection watertight. The tunneling device was again used to bring the end of the temporary test electrode out near the midline of the back. Once the temporary test electrode was now out of its skin exit site, this was hooked up to the pacemaker. All the incisions were closed using lora. Dressings were applied over top of the incisions. I will see her back next week to check on her symptoms. If she is improved with respect to her urinary and fecal incontinence, then we will proceed with stage II permanent implantation of the pacemaker. TRANSINT:[id number] Voice Confirmation ID: [id number] DOCUMENT ID: [id number] HANK CAMEJO MD at 1405 CC: [id number] DICTATION DATE: 07/20/18 1149 STRAP MAKING MACHINE OPERATOR: 07/20/18 1314 [facility] [address] [place] [address]
--- NOTE | 2018-07-20 15:24 | NUR ---
1305 DRESSED. GIVEN DISCHARGE INFORMATION INCLUDING RX: TYLENOL #3, MED REC, RTC APPT., & MC D/C INSTRUCTIONS. PT VOICED UNDERSTANDING. TO PRIVATE CAR PER WHEELCHAIR BY VOLUNTEER. HOME WITH FEMALE. Jayce DEL ANGEL R.N.
== END 2018-07-20 13:05 | disposition home or self-care (01) ==
LOC: D.OPS 07:05 → D.PAN 10:10 → D.OPS 10:10 → D.PAN 12:00 → D.OPS 12:00
PROVIDERS: Anesthesiology; ATTEND Urology
DX: N39.41 Urge incontinence (principal); R15.9 Full incontinence of feces; Z01.812 Encounter for preprocedural laboratory examination

== ENCOUNTER 2018-08-03 05:15 | Day surgery (SDC) | payer MEDICARE, MEDICAID ==
[~2018-08-03] VITALS: Ht 165.1 cm; Wt 75.3 kg
[~2018-08-03 05:15] MED LIST changes: -PROTONIX20 MG PO; +TYLENOL W/CODEI1 TAB PO; +VITAMIN B-121000 MCG PO; -ZOFRAN4 MG PO; +ZOFRAN8 MG PO
[2018-08-03 05:38] LABS: HEMATOCRIT 35.4 % (36.0-48.0); HEMOGLOBIN 11.8 g/dL (12-16); MCH 31.7 pg (26.0-34.0); MCHC 33.3 g/dL (31.0-37.0); MCV 95.2 fL (80.0-100.0); MEAN PLATELET VOLUME 9.6 fL (7.4-10.4); RBC 3.72 10x6/uL (4.00-5.40); RDW 14.1 % (11.5-14.5); WBC 5.3 10x3/uL (4.8-10.8)
[2018-08-03] MEDS ORDERED: CIPRO500 MG PO (06:39)
[2018-08-03 06:40] VITALS: BP 111/67; Ht 165.1 cm; Wt 75.3 kg
--- NOTE | 2018-08-03 12:02 | OP ---
PATIENT NAME: CL DO MEDICAL RECORD: [id number] :51 [facility] DATE: SURGEON: HANK CAMEJO MD DATE OF OPERATION: 08/03/2018 SURGEON: Hank Camejo MD ANESTHESIA: TIVA by Albin Gaines CRNA. DIAGNOSES: Urge urinary incontinence, urge fecal incontinence. PROCEDURE: InterStim stage II. BLOOD LOSS: None. CLINICAL HISTORY: This is a 68-year-old female, who has incontinence of both urine and bowel function. She has tried medications without any benefit. She had an InterStim stage I trial 2 weeks ago. She had really excellent results from this trial. She no longer has to wake up at night to go void at all. She is completely continent at both bowel and bladder functions. When I saw her in the office, she was developing a bit of a skin infection around the exit site of the temporary compressed gases tester. I offered to cut the lead for her, but she did not want to lose the benefits of the InterStim. She comes today to have the permanent implant given. I had already started her on Cipro from the office visit. We gave her Levaquin today director of operations for therapy to the OR. SHE IS ALLERGIC TO MORPHINE, MILK, VICODIN, DILAUDID, ADHESIVE TAPE. DESCRIPTION OF PROCEDURE: The patient was placed in prone position. She was given IV sedation. She was prepped and draped. The connection between the temporary compressed gases tester and the permanent lead is in the right iliac crest region. This area was infiltrated with lidocaine 1% containing epinephrine. The incision was reopened. With blunt dissection with the fingers, the connection was discovered and pulled out of the wound. It should be noted that prior to prepping, we did cut the external lead where it exited the skin. The connection between the temporary compressed gases tester and the permanent electrode was then disrupted by undoing the connecting screws. We then inserted the permanent lead into the pacemaker. The connection was tightened down using the torque-limiting screwdriver. The fragments of the temporary compressed gases tester that had been running subcutaneously was discarded. A pocket was then made in the subcutaneous fat down to the level of the gluteal fascia. The pacemaker was then inserted into this pocket. We performed telemetry and all functions were working properly. The wound was irrigated out with sterile water and then the subcutaneous fat was reapproximated using 2 simple interrupted 3-0 Vicryl sutures. [place] were used to close the skin and a dressing was applied. I will see the patient back next week to remove the lora. TRANSINT:[id number] Voice Confirmation ID: [id number] DOCUMENT ID: [id number] OPERATIVE REPORT [id number] CL DO, HANK Angelo MD at 1202 CC: [id number] DICTATION DATE: 08/03/18829 PILE DRIVER OPERATOR: 08/03/[address] [facility] 08/03/18 [address] [place] [address]
== END 2018-08-03 09:10 | disposition home or self-care (01) ==
LOC: D.OPS 05:15 → D.PAN 07:30 → D.OPS 08:00 → D.PAN 08:45 → D.OPS 08:45
PROVIDERS: Anesthesiology; ATTEND Urology
DX: N39.41 Urge incontinence (principal); R15.2 Fecal urgency; Z88.5 Allergy status to narcotic agent; Z91.011 Allergy to milk products; Z01.812 Encounter for preprocedural laboratory examination

== ENCOUNTER 2018-09-02 06:47 | Day surgery (SDC) | payer MEDICARE, MEDICAID ==
[~2018-09-02] VITALS: Ht 152.4 cm; Wt 74.8 kg
[~2018-09-02 06:47] MED LIST changes: +CIPRO500 MG PO; +DULCOLAX STOOL100 MG PO; +VISTARIL25 MG PO
[2018-09-02 07:08] LABS: HEMATOCRIT 36.2 % (36.0-48.0); HEMOGLOBIN 12.2 g/dL (12-16); MCH 31.7 pg (26.0-34.0); MCHC 33.7 g/dL (31.0-37.0); MEAN PLATELET VOLUME 9.7 fL (7.4-10.4); RBC 3.85 10x6/uL (4.00-5.40); RDW 14.2 % (11.5-14.5); WBC 5.6 10x3/uL (4.8-10.8)
[2018-09-02 08:10] VITALS: BP 98/64; Ht 152.4 cm; Wt 74.8 kg
--- NOTE | 2018-09-02 11:40 | NUR ---
CONSULTED DR MUÑOZ AT 1130 REGARDING PERSISTENT PAIN 10/25. VERBAL ORDERS RECEIVED TO ADMINISTER DEMEROL 25MG X1 INACU. PHENERGAN 12.MG X1 IN PACU PRN. ORDERS RECEIVED AND IMPLEMENTED. WILL CONTINUE TO MONITOR.
--- NOTE | 2018-09-02 12:00 | NUR ---
REC'D FROM RR. FAMILY AT BEDSIDE. DRESSING INTACT TO LOWER BACK WITH SCANT AMOUNT OF DRAINAGE NOTED. AMBULATED TO BATHROOM AND VOIDED WITHOUT DIFFICULTY. FL TRAY BROUGHT TO PT.
--- NOTE | 2018-09-02 12:30 | NUR ---
TOLERATED DIET. NO C/O VOICED.
--- NOTE | 2018-09-02 12:43 | OP ---
PATIENT NAME: CL DO MEDICAL RECORD: [id number] :51 LOCATION:[facility] ADMISSION DATE: SURGEON: HANK CAMEJO MD DATE OF OPERATION: 09/02/2018 SURGEON: Hank Camejo MD ANESTHESIA: TIVA by Justa Hamilton CRNA. DIAGNOSIS: Chronic pain at the pacemaker implantation site. PROCEDURE: Explantation of the InterStim pacemaker and lead. SPECIMENS: InterStim pacemaker and lead. No signs of infection. BLOOD LOSS: None. CLINICAL HISTORY: This is a 68-year-old female who had urge urinary incontinence and fecal incontinence. She had a trial of InterStim and she had an excellent response to the InterStim. She then had implantation of a permanent pacemaker. When I saw her back in the clinic, she was complaining of severe pain at the site of the pacemaker implantation. There was no evident sign of infection. Her incisions had fully healed. There was no erythema. However, when the area was touched, she would literally jump and scream. She does have a history of chronic back pain. At this point, she just wants to have the device out because she cannot tolerate the pain from having it physically in her body. SHE IS ALLERGIC TO IODINATED CONTRAST, MORPHINE, MILK PRODUCTS, AND DILAUDID. She was given Ancef conference planner to the OR where. She was prepped with ChloraPrep. DESCRIPTION OF PROCEDURE: The patient was placed in prone position. She was given IV sedation. She was prepped, draped. The pacemaker was located via an incision in the right iliac crest region. This was infiltrated with 1% lidocaine containing epinephrine. The incision was reopened. Using the fingers, I was able to get the pacemaker out through the incision. By tugging gently on the permanent electrode, the tines gave way and I could retrieve the entire electrode by pulling at the pacemaker site. The pacemaker was surrounded by some serous fluid, but there was no evidence of pus or other necrosis or anything else. The wound was irrigated out with normal saline. The subcutaneous fat was reapproximated using 2-0 Vicryl. [place] were used to reapproximate the skin incision. A dressing was applied to the incision. I will see her next week to remove the huma. Her only option now for bladder control is intravesical Botox. However, she seems reluctant to try this also. TRANSINT:[id number] Voice Confirmation ID: [id number] DOCUMENT ID: [id number] HANK CAMEJO MD at 1243 CC: [id number] DICTATION DATE: 09/02/18 1100 UTILIZATION COORDINATOR: 09/02/18 1237 [facility] [address] [id number]
--- NOTE | 2018-09-02 12:55 | NUR ---
IF DC'D WITH CATHETER INTACT. WRITTEN AND VERBAL DC INST. GIVEN TO PT ALONG WITH RX. VERBALIZED UNDERSTANDING.
--- NOTE | 2018-09-02 13:00 | NUR ---
DC'D HOME WITH FAMILY VIA PRIVATE VEHICLE. TAKEN TO VEHICLE VIA WC. STABLE AT TIME OF DC.
== END 2018-09-02 13:00 | disposition home or self-care (01) ==
LOC: D.OPS 06:47 → D.PAN 09:00 → D.OPS 09:00 → D.PAN 09:45 → D.OPS 09:45
PROVIDERS: Anesthesiology; ATTEND Urology
DX: T85.840A Pain due to nervous system prosthetic devices, implants and grafts, initial encounter (principal)

== ENCOUNTER 2018-09-06 01:54 | Observation (INO) | payer MEDICARE, MEDICAID ==
[~2018-09-06] VITALS: Ht 152.4 cm; Wt 75.9 kg
[2018-09-06] VITALS (13 sets, daily range): BP systolic 91–127; BP diastolic 57–82; Ht 152.4 cm; Wt 75.9 kg
--- NOTE | ~2018-09-06 | HEMODYNAMI ---
PATIENT:CL DO MEDICAL RECORD: [id number] : 52 LOCATION:[facility] D.2102 ADMISSION DATE: 09/06/18 Generatedon:09/06/201815:33 Patient name: CL DO Patient #: [id number] SSN: : 1950 Date of study: 09/06/2018 Page: Of Hemodynamic Procedure Report Patient Data Patient Demographics Procedure consent was obtained First Name: CL Gender: Female Last Name: ERNESTINA : 1950 [facility] Initial: J Age: 68 year(s) Patient #: [id number] Race: Additional ID: [id number] Contact details [address]: [address] [place] [address] rd State: [place] City: [place] Zip code: [address] Past Medical History History of disease Date Diagnosis Comments CAD Allergies Allergen Reaction Date Comments Reported Other allergy 09/29/2014 Latex, Morphine, Dilaudid Admission Admission Data Admission Date: 09/06/2018 Admission Time: 2:02 Room #: D.2102 Procedure Procedure Types Cath Procedure Diagnostic Procedure [facility] w[facility] Procedure Description Procedure Date Procedure Date: 09/06/2018 Procedure Start Time: 15:18 Procedure End Time: 15:33 Procedure Staff Name Function García Irizarry MD Performing Physician Laura Burden RT Monitor Julio Castellanos RN Nurse Cheko Pope RT Scrub Procedure Data Cath Procedure Fluoroscopy Diagnostic fluoroscopy Total fluoroscopy Time: 1.4 time: 1.4 min min Diagnostic fluoroscopy Total fluoroscopy dose: 366 dose: 366 mGy mGy Contrast Material Contrast Material Type Amount (ml) Isovue 300 71 Entry Location Entry Primary Successful Side Size Upsize Upsize Entry Closure Succes sful Closure Location (Fr) 1 (Fr) 2 (Fr) Remarks Device Remarks Femoral Right 5 Fr Exoseal artery Estimated blood loss: 5 ml Diagnostic catheters Device Type Used For End Catheter Placement MULTIPACK JL 4.0 5Fr Left Coronary catheter Angiography MULTIPACK 3DRC 5Fr Right Coronary catheter Angiography MULTIPACK Pigtail 5 Fr LV Angiography catheter Procedure Complications No complications Procedure Medications Medication Administration Route Dosage 0.9% NaCl I.V. 100 ml/hr Oxygen etCO2 Nasal cannula 2 l/min Heparin Flush Bag added to field 2 bags (1000units/500ml NS) Lidocaine 2% added to field 20 Versed I.V. 1 mg Fentanyl I.V. 50 mcg Versed I.V. 1 mg Fentanyl I.V. 50 mcg Hemodynamics Rest Heart Rate: 66 (bpm) Pressure Samples Time Site Value (mmHg) Purpose Heart Use Rate(bpm) 15:26 LV 102/-4,13 EDP 76 Gradients Valve Time Site Site Mean SEP/DFP Peak To Heart Use 1 2 (mmHg) (sec/min) Peak Rate (mmHg) (bpm) Aortic 15:26 LV AO 79 Snapshots Pre Cath Intra NCS Post Cath Vital Signs Time Heart Resp SPO2 etCO2 NIBP Rhythm Pain Sedation Rate (ipm) (%) (mmHg) (mmHg) Status Level (bpm) 15:14:31 62 10 99 0 110/71(89) NSR 0 (11) 10(A) , No pain 15:18:40 68 19 96 41.3 103/55(82) NSR 0 (11) 10(A) , No pain 15:22:42 75 17 92 37.6 98/68(84) NSR 0 (11) 10(A) , No pain 15:26:44 81 13 94 36 98/65(75) NSR 0 (11) 9(A) , No pain 15:30:45 78 10 94 21.8 102/65(81) NSR 0 (11) 9(A) , No pain Medications Time Medication Route Dose Verified Delivered Reason Notes Eff ectiveness by by 15:16:06 0.9% NaCl I.V. 100 Julio Julio Per ml/hr Emanuel Castellanos physician RN RN 15:16:16 Oxygen etCO2 2 Julio Julio for low 02 Nasal l/min Emanuel Castellanos sats cannula RN RN 15:16:27 Heparin Flush added 2 Julio Julio used for Bag to bags Emanuel Castellanos procedure (1000units/500ml field RN RN NS) 15:16:38 Lidocaine 2% added 20ml Julio Julio for local to vial Lorigan Emanuel anesthetic field RN RN 15:16:48 Versed I.V. 1 mg Julio Julio for Lorigan Lorigan sedation RN RN 15:16:55 Fentanyl I.V. 50 Julio Jluio for mcg Lorigan Lorigan sedation RN RN 15:24:08 Versed I.V. 1 mg Julio Julio for Lorigan Lorigan sedation RN RN 15:24:14 Fentanyl I.V. 50 Julio Julio for mcg Lorigan Lorigan sedation RN clinical systems analyst Log Time Note 14:42:11 Time tracking: Regular hours (M-F 7:00 - 5:00) 14:42:15 Plan of Care:Hemodynamics will remain stable., Cardiac rhythm will remain stable., Comfort level will be maintained., Respiratory function will remain adequate., Patient/ family verbilizes understanding of procedure., Procedure tolerated without complication., Recovers from procedure without complications.. 14:42:19 Julio Castellanos RN sent for patient. Start room use. 14:53:12 Patient received from PCU to CCL 2 Alert and oriented. Tansferred to table in Supine position. 14:53:13 Warm blankets applied, and breann hugger turned on for patient comfort. 14:53:13 Correct patient and procedure confirmed by team. 14:53:15 Signed procedure consent form obtained from patient. 14:53:15 ECG and BP/O2 sat monitors applied to patient. 14:53:16 Full Disclosure recording started 15:00:08 IV left wrist D/C'd due to site irritation. 15:00:23 IV started by Julio Castellanos RN inleft forearm with a 22 gauge IV catheter with 0.9% NaCl at KVO. 15:05:14 IV CATHETER 22g opened to sterile field. 15:05:15 IV CATHETER 22g opened to sterile field. 15:05:19 Use device set Femoral Dx 15:05:20 ACIST Syringe (84864) opened to sterile field. 15:05:21 Bag Decanter (2002S) opened to sterile field. 15:05:21 Medline Cath Pack ([id number]) opened to sterile field. 15:05:21 DIAGNOSTIC WIRE .035 260cm J wire (992422) opened to sterile field. 15:05:23 ACIST Hand Control (66628) opened to sterile field. 15:05:23 ACIST Manifold (18477) opened to sterile field. 15:05:24 DIAGNOSTIC Multipack 5Fr catheter set ([id number]) opened to sterile field. 15:05:25 Tegaderm 4 x 4 (1626W) opened to sterile field. 15:05:26 SHEATH 5FR [place] ([id number]) opened to sterile field. 15:05:36 Rhythm: sinus rhythm 15:05:42 H&P Date Dictated: 09/06/2018 Within 30 days and on chart.. 15:05:44 Pre-procedure instructions explained to patient. 15:05:44 Pre-op teaching completed and patient verbalized understanding. 15:05:47 Family in patients room. 15:05:48 Patient NPO since Midnight. 15:05:54 Is patient on blood thinner?No 15:05:56 Patient diabetic? No. 15:05:58 Previous problem with sedation/anesthesia? No ? 15:06:03 Snore? Yes 15:06:03 Sleep apnea? No 15:06:04 Deviated septum? No 15:06:05 Opens mouth fully? Yes 15:06:06 Sticks out tongue? Yes 15:06:09 Airway obstruction? No ? 15:06:11 Dentures? No ? 15:06:13 Pre procedure: right dorsailis pedis pulse 2+ Normal; easily identifiable; not easily obliterated 15:06:15 Patient pain scale 0/10 ?. 15:06:20 Lab results completed and on chart. 15:12:47 Right groin area was prepped with chlora-prep and draped in sterile fashion 15:12:49 Alarms reviewed by R. N. 15:12:49 Sharps counted by scrub and verified by R.N. 15:13:18 Vital chart was started 15:14:29 Final Timeout: patient, procedure, and site verified with staff and physician. All members of the team are in agreement. 15:14:30 Right groin site verified by team. 15:14:33 Maximum allowable Isovue 300 dose 300ml. Physician notified. (300ml for normal creatinines. For patients with creatinine of 1.7 or higher multiply weight(kg) x 5 divided by creatinine.) 15:14:37 Fire Safety Assessment: A--An alcohol-based skin anteseptic being used preoperatively., C--Open oxygen or nitrous oxide is being used., D--An ESU, laser, or fiber-optic light is being used. 15:14:41 Physical assessment completed. ASA score P 2 - A patient with mild systemic disease as per García Irizarry MD. 15:14:44 Sedation plan: IV Moderate Sedation Medication:Versed, Fentanyl 15:14:48 Baseline sample Acquired. 15:16:06 0.9% NaCl 100 ml/hr I.V. was administered by Julio Castellanos RN; Per physician; 15:16:16 Oxygen 2 l/min etCO2 Nasal cannula was administered by Julio Castellanos RN; for low 02 sats; 15:16:27 Heparin Flush Bag (1000units/500ml NS) 2 bags added to field was administered by Julio Castellanos RN; used for procedure; 15:16:38 Lidocaine 2% 20ml vial added to field was administered by Julio Castellanos RN; for local anesthetic; 15:16:48 Versed 1 mg I.V. was administered by Julio Castellanos RN; for sedation; 15:16:55 Fentanyl 50 mcg I.V. was administered by Julio Castellanos RN; for sedation; 15:18:01 Procedure started. 15:18:04 Local anesthetic to right femoral artery with Lidocaine 2% by García Irizarry MD.INITIAL ACCESS ONLY 15:20:03 A 5 Fr sheath was inserted into the Right Femoral artery 15:21:05 A MULTIPACK JL 4.0 5Fr catheter was advanced over the wire and used for Left Coronary Angiography. 15:22:19 Catheter removed. 15:23:16 A MULTIPACK 3DRC 5Fr catheter was advanced over the wire and used for Right Coronary Angiography. 15:24:08 Versed 1 mg I.V. was administered by Julio Castellanos RN; for sedation; 15:24:14 Fentanyl 50 mcg I.V. was administered by Julio Castellanos RN; for sedation; 15:25:42 Catheter removed. 15:25:47 A MULTIPACK Pigtail 5 Fr catheter was advanced over the wire and used for LV Angiography. 15:26:15 LV gram done using AMBRIZ 15:26:16 LV hemodynamics recorded. 15::18 Injector settings: Ml/sec: 10, Volume: 20, 15:26:22 EF : 60 % 15::48 Catheter removed. 15:27:12 Sheath removed intact; hemostasis achieved with Exoseal to the Right Femoral artery. 15:27:14 Procedure ended.(Physican Out) 15:27:38 Fluoroscopy time 01.40 minutes. 15::42 Flurop Dose total: 366 15::42 Fluoroscopy dose: 366 mGy 15:27:59 Contrast amount:Isovue 300 71ml. 15:28:00 Sharps counted by scrub and verified by R.N. 15:28:02 Insertion/operative site no bleeding no hematoma. 15:28:04 Post-op/insertion site Right Femoral artery dressed using a 4 x 4 and Tegaderm. 15:28:07 Post right femoral artery:stable, clean and dry 15:28:08 Post Procedure Pulses reassessed and unchanged 15:28:12 Post-procedure physical assessment completed. ASA score P 2 - A patient with mild systemic disease as per García Irizarry MD. 15:28:14 Post procedure rhythm: unchanged. 15:28:17 Estimated blood loss: 5 ml 15:28:18 Post procedure instruction explained to patient.Patient verbalizes understanding. 15:28:18 Patient needs reinforcement of post procedure teaching. 15:28:39 Procedure Complication : No complications 15:28:41 See physician's report for complete and final results. 15:28:54 EXOSEAL 5Fr (EX500) opened to sterile field. 15:29:15 Procedure and supply charges have been captured, reviewed, submitted and are correct. 15:32:54 Vital chart was stopped 15:32:56 Report given to PCU. 15:32:59 Patient transfered to PCU with Bed. 15:33:08 Procedure ended. 15:33:08 Full Disclosure recording stopped 15:33:12 End room use (Document Last) Device Usage Item Name Manufacture Quantity Catalog Hospital Part Current Minimal Lot# / Number Charge Number Stock Stock Serial# Code IV CATHETER B. Monzon 2 5340172-05 860880 882297 936005 5 22g ACIST Acist 1 80887 218322 459394 455034 20 Syringe Medical (94332) Systems Inc Bag Microtek 1 433334 15895 042125 5 Decanter Medical Inc. () Medline Medline 1 [id number] 946348 75511 078613 5 Cath Pack ([id number]) DIAGNOSTIC [facility] [place] 1 634870 136704 161396 446409 30 WIRE .035 260cm J wire (302520) ACIST Hand Acist 1 53066 376904 947712 175624 5 Control Medical (28477) Systems Inc ACIST Acist 1 24528 780559 723626 917402 5 Manifold Medical (96325) Systems Inc DIAGNOSTIC Cardinal 1 [id number] 493812 65692 604091 30 Multipack Health 5Fr catheter set ([id number]) Tegaderm 4 3M 1 1626W 085220 686298 193810 5 x 4 (1626W) SHEATH 5FR Terumo 1 [id number] 796515 883690 258959 5 [place] (XYE124) MULTIPACK Cardinal 1 101393 5 JL 4.0 5Fr Health catheter MULTIPACK Cardinal 1 933845 5 3DRC 5Fr Health catheter MULTIPACK Cardinal 1 630497 5 Pigtail 5 Health Fr catheter EXOSEAL 5Fr Cardinal 1 EX500 904353 665886 568159 10 (EX500) Health Signature Audit Anderson Stage Time Signature Unsigned Intra-Procedure 09/06/2018 Laura 3:33:22 PM Counts RT(R) Signatures Monitor : Laura Signature : Counts RT Date : Time : [address] [address]
[2018-09-06 02:10] LABS: HEMOGLOBIN 11.1 g/dL (12-16); LYMPHOCYTES 45.1 % (15-50); MCH 31.6 pg (26.0-34.0); MCHC 33.6 g/dL (31.0-37.0); MEAN PLATELET VOLUME 9.7 fL (7.4-10.4); NEUTROPHILS 36.6 % (40-80); PLATELET COUNT 161 10x3/uL (130-400); RBC 3.51 10x6/uL (4.00-5.40); RDW 14.3 % (11.5-14.5)
[2018-09-06 02:23] LABS: ALBUMIN 3.2 g/dL (3.4-5.0); ALKALINE PHOSPHATASE 109 U/L (46-116); ALT (SGPT) 22 U/L (10-68); BILIRUBIN - TOTAL 0.25 mg/dL (0.2-1.3); CALC OSMOLALITY 277 mosm/kg (275-300); CALCIUM 8.7 mg/dL (8.5-10.1); CHLORIDE - SERUM 107 mmol/L (98-107); CREATININE - SERUM 1.3 mg/dL (0.6-1.3); GLUCOSE 105 mg/dL (74-106); SODIUM 140 mmol/L (136-145); UREA NITROGEN 11 mg/dL (7-18); eGFR NON AFRICAN AMERICAN 43 mL/min (90-120)
[2018-09-06 02:31] LABS: LIPASE 187 U/L (73-393); MAGNESIUM - SERUM 2.1 mg/dL (1.8-2.4); PRO BNP 62 pg/mL (0-125)
[2018-09-06 02:42] LABS: TROPONIN-I < 0.017 ng/mL (0.000-0.060)
--- NOTE | 2018-09-06 02:52 | NUR ---
MEDS COUNTED AND LOCKED UP IN THE PYXIS. PT AWARE.
--- NOTE | 2018-09-06 02:53 | NUR ---
REPORT TO DARIO NOVAK.
--- NOTE | 2018-09-06 04:11 | NUR ---
RECIEVED REPORT FROM ASIA BISHOP IN ER AT 0255. ARRIVED TO FLOOR IN W/C ASSISTED BY STAFF AT 0305. TRANSFERED SELF TO BED FROM W/C. ALERT AND ORIENTED X4. O2@2 LITERS PER N/C IN PLACE. REPORTS SMOKES DAILY. IV TO LEFT FA SL.. UP AD MEGHAN TO TOILET. STATES CHEST PAIN AND CHRONIC BACK PAIN AT 8. TYLENOL#3 GIVEN IN ER. STATES SHE TAKES THAT AT HOME.
--- NOTE | 2018-09-06 07:30 | NUR ---
PT LYING IN BED. EYES CLOSED. CHEST RISING AND FALLING. O2 AT 2L VIA NC. BED LOW. CL IN REACH.
--- NOTE | 2018-09-06 09:30 | NUR ---
HEART CATH CONSENTS SIGNED. CALLED FINANCIAL ANALYST INTERN AND THEY STATED THAT THEY DON'T HAVE A CERTAIN TIME FOR PT IT WILL JUST BE SOME TIME TODAY. STATED THIS TO PT AND SHE VERBALIZED UNDERSTANDING. PT UPSET THAT SHE HAS TO REMAIN NPO FOR HEART CATH. I STTAED TO HER IF SHE DOES NOT REMAIN NPO SHE CAN'T GO TODAY. SHE VERBALIZED UNDERSTANDING AND STATED SHE WILL STAY NPO.
--- NOTE | 2018-09-06 09:49 | NUR ---
I have reviewed this patient and I concur with the Shift Assessment completed by the Licensed Practical Nurse today this shift.
[2018-09-06 10:09] LABS: APTT 35.7 SECONDS (22.8-39.4); INR 1.04 (0.85-1.17); PROTIME 13.1 SECONDS (11.6-15.0)
[2018-09-06 10:10] LABS: % SATURATION 14 % (15-55); D-DIMER-QUANTITATIVE 0.45 ug/mLFEU (0.20-0.54); IRON 34 ug/dl (35-150); TOTAL IRON BIND CAPACITY 237 ug/dl (260-445); UNSAT IRON BIND CAPACITY 203 ug/dl (150-375)
--- NOTE | 2018-09-06 10:15 | NUR ---
UA COLLECTED AND TAKEN TO LAB.
[2018-09-06 10:26] LABS: APPEARANCE CLEAR (CLEAR); BILIRUBIN NEGATIVE (NEGATIVE); COLOR YELLOW (YELLOW); GLUCOSE NEGATIVE (NEGATIVE); KETONE NEGATIVE (NEGATIVE); NITRITE NEGATIVE (NEGATIVE); PROTEIN NEGATIVE (NEGATIVE); UROBILINOGEN NORMAL (NORMAL)
--- NOTE | 2018-09-06 14:20 | NUR ---
RIGHT HIP/TOP OF BUTTOCK CLEANSED WITH WOUND CLEANSER AD 4X4'S, PATTED DRY WITH 4X4'S, COVERED WITH 4X4'S AND BORDER GAUZE TAPE.
--- NOTE | 2018-09-06 14:45 | NUR ---
PT PREOP'D FOR TIRE AND TUBE REPAIRER AND STARTED BEING TEARFUL OVER IV PLACEMENT. ANOTHER NURSE ASKED TIRE AND TUBE REPAIRER IF THEY CAN RESTART PT'S IV AND THEY STATED THEY WOULD. PT TAKEN FOR HEART CATH VIA BED.
--- NOTE | 2018-09-06 15:36 | NUR ---
SPOKE WITH NED FROM THE THERAPEUTIC MASSAGE TECHNICIAN HE STATES SHE WAS A CLEAN CATH FROM DR. LOPES. SHE GOT 100 OF FENTANYL AND 2 OF VERSED. WENT RIGHT FEMORAL AND CLOSED WITH 5 SALVADOREAN EXOCIL.
--- NOTE | 2018-09-06 15:50 | NUR ---
PT RETURNED FROM JUKEBOX ROUTEMAN LAYING FLAT. ALERT AND ORIENTED. O2 AT 2L VIA NC. JUKEBOX ROUTEMAN RESITED PT'S IV FROM LEFT WRIST TO LEFT FA 22G WITH NS INFUSING. RIGHT GROIN SOFT, SHOWS NO S/S OF HEMATOMA, DRESSING C/D/I. PP CHECKED. STATED TO PT SHE HAS TO LAY FLAT FOR TWO HOURS AND SHE VERBALIZED UNDERSTANDING. VS STABLE. WILL CONTINUE TO MONITOR. BED LOW. CL IN REACH.
--- NOTE | 2018-09-06 16:55 | NUR ---
LENIN BISHOP WAS WALKING BY PT'S ROOM AND SAW PT SITTING UP EATING. PT IS STILL POST CATH AND HAS TO LAY FLAT TILL 1750. PT HAS BEEN AWARE AND MADE AWARE AGAIN AND LAID BACK DOWN FLAT. RIGHT GROIN CHECKED SOFT TO PALPAATE AND NO BLEEDING SEEN. PT BECAME TEARFUL BECAUSE WE WON'T LET HER EAT RIGHT NOW. WE STATED TO HER WE WILL COVER YOUR TRAY AND CAN WARM IT UP LATER BUT YOU HAVE TO REMAIN FLAT BECAUSE THEY WENT THROUGH YOUR FEMORAL ARTERY. PT VERBALZIED UNDERSTANDING. WILL COTNINUE TO MONITOR.
--- NOTE | 2018-09-06 17:56 | NUR ---
PT RAISED HOB RAISED GRADUALLY TO 25 DEGREES. RIGHT GROIN SOFT, SHOWS NO S/S OF HEMATOMA, DRESSING C/D/I. WILL CONTINUE TO MONITOR.
--- NOTE | 2018-09-06 18:19 | NUR ---
PT LYING FLAT. ALERT AND ORIENTED. VS STABLE. RIGHT GROIN SOFT, DRESSING C/D/I. PP CHECKED. BED LOW. CL IN REACH. WILL CONTINUE TO MONITOR. GAVE PT A REMINDER SHE HAS TO CONTINUE TO LAY FLAT UNTIL 1754. SHE VERBALIZED UNDERSTANDING.
--- NOTE | 2018-09-06 18:21 | NUR ---
STOOL NOT COLLECTED D/T PT DID NOT HAVE A BM. PT STATES SHE GOES ONCE A WEEK AND SHE HAS TO TAKE MEDS ONCE A WEEK TO MAKE HERSELF GO.
--- NOTE | 2018-09-06 19:20 | NUR ---
AWAKE/ALERT ORIENTED X4, TALKING TO FAMILY MEMBERS. DENIES PAIN OR ANY NEEDS. RR 18 EVEN U/L ON 02 AT 2L/NC. IV IN L FA INTACT SL. RT GROIN DRSG CATH SITE C/D/I. DRSG ON RT HIP C/D/I. ORIENTED TO CALL LIGHT FOR ANY NEEDS.
[2018-09-07 01:34] VITALS: BP 93/589
[2018-09-07 05:49] LABS: HEMATOCRIT 32.3 % (36.0-48.0); HEMOGLOBIN 10.7 g/dL (12-16); MCH 31.3 pg (26.0-34.0); MCHC 33.1 g/dL (31.0-37.0); MCV 94.4 fL (80.0-100.0); MEAN PLATELET VOLUME 10.6 fL (7.4-10.4); PLATELET COUNT 161 10x3/uL (130-400); RBC 3.42 10x6/uL (4.00-5.40); RDW 14.3 % (11.5-14.5); WBC 3.5 10x3/uL (4.8-10.8)
[2018-09-07 05:55] VITALS: BP 118/67
[2018-09-07 06:08] LABS: ANION GAP 10.2 mmol/L (8-16); CALCIUM 8.7 mg/dL (8.5-10.1); CARBON DIOXIDE 28.1 mmol/L (21.0-32.0); CREATININE - SERUM 1.2 mg/dL (0.6-1.3); POTASSIUM - SERUM 4.3 mmol/L (3.5-5.1)
--- NOTE | 2018-09-07 07:30 | NUR ---
ROUNDING DONE WITH PATIENT SITTING UP IN THE BED, DENIES NEEDS AT THIS TIME. ON HEART MONITOR SHOWING SR, HR 60. DRESSING SEEN TO RIGHT GROIN, C/D/I. ON 2L PER NC. LEFT FA PIV SEEN WITH SALINE LOCK. WILL MONITOR.
[2018-09-07 08:07] VITALS: BP 114/72
[2018-09-07 10:13] LABS: BASOPHILS 2 % (0-2); EOSINOPHILS 7 % (0-7); LYMPHOCYTES 32 % (15-50); MONOCYTES 12 % (2-11); NEUTROPHILS 44 % (40-80); PLATELET ESTIMATE NORMAL
--- NOTE | 2018-09-07 10:40 | NUR ---
REQUESTS TUSHAR DAVIS ICE CREAM, VISTERIL AND WATER. GIVEN.
[2018-09-07 11:12] LABS: FOLATE (FOLIC ACID) - SERUM 15.6 ng/mL (>3.0)
[2018-09-07 11:25] VITALS: BP 108/69
--- NOTE | 2018-09-07 11:45 | NUR ---
HEART MONITOR TURNED IN PATIENT IS BEING DISCHARGED.
--- NOTE | 2018-09-07 12:09 | NUR ---
PATIENT HAS BEEN INFORMED OF DISCHARGE.
--- NOTE | 2018-09-07 12:30 | NUR ---
PATIENT IS BEING DISCHARGED SO NO STOOL SAMPLE HAS BEEN OBTAINED AT PRESENT. PATIENT WAS GIVEN PRUNE JUICE EARILER.
--- NOTE | 2018-09-07 13:16 | NUR ---
SALINE LOCK REMOVED WITH CATH TIP INTACT. PATIENT TELLS ME THAT SHE HAS SOME MEDICATIONS IN PHARMACY. I CALLED [facility] AND SHE CAN NOT FIND THEM. SHE THINKS THAT THEY MIGHT STILL BE IN ER. SHE IS GOING TO CHECK AND CALL ME BACK.
--- NOTE | 2018-09-07 13:36 | NUR ---
1325-BEV WITH PHARMACY TO BRING ME TWO BAGS OF MEDS. THESE ARE VERIFIED BY PATIENT AND SIGNED FOR. AWAITING WHEELCHAIR FOR DISCHARGE.
--- NOTE | 2018-09-07 13:38 | NUR ---
DISCHARGED HOME VIA WHEELCHAIR PAST VERBAL AND WRITTEN DISCHARGE INSTRUCTIONS GIVEN.
== END 2018-09-07 13:40 | disposition home or self-care (01) ==
LOC: D.ER 01:54 → OBSVTIME 02:02 → D.M2 02:02
PROVIDERS: Family Medicine; Internal Medicine Nephrology; ADMIT Family Medicine; ATTEND Family Medicine
DX: I24.9 Acute ischemic heart disease, unspecified (principal); I25.110 Atherosclerotic heart disease of native coronary artery with unstable angina pectoris; I10 Essential (primary) hypertension; D50.9 Iron deficiency anemia, unspecified; E78.5 Hyperlipidemia, unspecified; Z86.73 Personal history of transient ischemic attack (TIA), and cerebral infarction without residual deficits; F17.213 Nicotine dependence, cigarettes, with withdrawal; F31.9 Bipolar disorder, unspecified; F41.9 Anxiety disorder, unspecified

== ENCOUNTER 2018-10-13 01:56 | Inpatient (IN) | payer MEDICARE, MEDICAID ==
[~2018-10-13] VITALS: Ht 152.4 cm; Wt 79.6 kg
[2018-10-13 02:43] LABS: BASOPHILS 0.2 % (0-2); EOSINOPHILS 5.2 % (0-7); HEMATOCRIT 34.8 % (36.0-48.0); HEMOGLOBIN 11.8 g/dL (12-16); IMMATURE GRANULOCYTES 0.2 % (0-5); LYMPHOCYTES 47.3 % (15-50); MCH 31.9 pg (26.0-34.0); MCHC 33.9 g/dL (31.0-37.0); MCV 94.1 fL (80.0-100.0); MEAN PLATELET VOLUME 10.1 fL (7.4-10.4); MONOCYTES 9.6 % (2-11); NEUTROPHILS 37.5 % (40-80); PLATELET COUNT 147 10x3/uL (130-400); RDW 14.5 % (11.5-14.5); WBC 5.2 10x3/uL (4.8-10.8)
[2018-10-13 03:01] LABS: ALBUMIN 3.7 g/dL (3.4-5.0); ALKALINE PHOSPHATASE 100 U/L (46-116); ALT (SGPT) 30 U/L (10-68); BILIRUBIN - TOTAL 0.21 mg/dL (0.2-1.3); CALC OSMOLALITY 283 mosm/kg (275-300); CARBON DIOXIDE 25.8 mmol/L (21.0-32.0); CHLORIDE - SERUM 107 mmol/L (98-107); CREATININE - SERUM 1.1 mg/dL (0.6-1.3); GLUCOSE 104 mg/dL (74-106); POTASSIUM - SERUM 3.8 mmol/L (3.5-5.1); PROTEIN - SERUM 7.1 g/dL (6.4-8.2); SODIUM 142 mmol/L (136-145); UREA NITROGEN 15 mg/dL (7-18); eGFR NON AFRICAN AMERICAN 52 mL/min (90-120)
[2018-10-13 03:11] LABS: CKMB 0.8 U/L (0.0-3.6); CREATINE KINASE 64 UL (21-215); PRO BNP 52 pg/mL (0-125); TROPONIN-I < 0.017 ng/mL (0.000-0.060)
[2018-10-13 06:41] VITALS: BP 110/69
--- NOTE | 2018-10-13 07:20 | NUR ---
MORNING ROUNDS MADE. PT RESTING COMFORTABLY. DENIES FURTHER CONCERNS AT THIS TIME. WILL CTM.
[2018-10-13 08:07] VITALS: BP 136/88
--- NOTE | 2018-10-13 08:30 | NUR ---
VITALS STABLE. MEDS TAKEN WITHOUT DIFFICULTY
[2018-10-13 08:31] LABS: HEMATOCRIT 35.5 % (36.0-48.0); HEMOGLOBIN 11.8 g/dL (12-16); MCH 31.2 pg (26.0-34.0); MCHC 33.2 g/dL (31.0-37.0); MCV 93.9 fL (80.0-100.0); MEAN PLATELET VOLUME 9.7 fL (7.4-10.4); PLATELET COUNT 129 10x3/uL (130-400); RBC 3.78 10x6/uL (4.00-5.40); RDW 14.5 % (11.5-14.5)
[2018-10-13 08:58] LABS: CALC OSMOLALITY 284 mosm/kg (275-300); CALCIUM 9.4 mg/dL (8.5-10.1); CARBON DIOXIDE 23.9 mmol/L (21.0-32.0); CHLORIDE - SERUM 107 mmol/L (98-107); CKMB 0.9 U/L (0.0-3.6); CREATINE KINASE 61 UL (21-215); CREATININE - SERUM 1.2 mg/dL (0.6-1.3); GLUCOSE 148 mg/dL (74-106); POTASSIUM - SERUM 3.7 mmol/L (3.5-5.1); SODIUM 141 mmol/L (136-145); TROPONIN-I < 0.017 ng/mL (0.000-0.060); UREA NITROGEN 14 mg/dL (7-18); WBC 2.8 10x3/uL (4.8-10.8); eGFR NON AFRICAN AMERICAN 47 mL/min (90-120)
--- NOTE | 2018-10-13 09:01 | NUR ---
PT C/O NAUSEA AND VOMITTING. NO EMESIS NOTED. PO ZOFRAN 8 MG GIVEN, SEE EMAR.
[2018-10-13 10:06] LABS: EOSINOPHILS 3 % (0-7); LYMPHOCYTES 13 % (15-50); MONOCYTES 10 % (2-11); NEUTROPHILS 74 % (40-80); PLATELET ESTIMATE NORMAL; TEAR DROP CELLS OCC
[2018-10-13 11:59] VITALS: BP 112/61
[2018-10-13 12:46] VITALS: BMI 37.1
[2018-10-13 12:48] LABS: APPEARANCE CLEAR (CLEAR); BILIRUBIN NEGATIVE (NEGATIVE); COLOR YELLOW (YELLOW); GLUCOSE NEGATIVE (NEGATIVE); KETONE NEGATIVE (NEGATIVE); NITRITE NEGATIVE (NEGATIVE); PROTEIN NEGATIVE (NEGATIVE); UROBILINOGEN NORMAL (NORMAL)
--- NOTE | 2018-10-13 14:05 | NUR ---
I have reviewed this patient and I concur with the Shift Assessment completed by the Licensed Practical Nurse today this shift.
--- NOTE | 2018-10-13 14:41 | NUR ---
PT C/O BEING HOT. INFORMED PT THAT THE AIR WASNT WORKING AND THAT THE HOSPITAL WAS WORKING ON FIXING IT. PROVIDED PT WITH ICE CREAM, SODA, AND CRACKERS REQUESTED, NO FURTHER C/O AT THIS TIME. WILL CTM.
--- NOTE | 2018-10-13 14:59 | NUR ---
MICOTINE PATCH APPLIED TO L SHOULDER
[2018-10-13 15:24] VITALS: Ht 152.4 cm; Wt 79.6 kg
[2018-10-13 16:54] VITALS: BP 117/69
--- NOTE | 2018-10-13 17:07 | NUR ---
PT HEART RATE ELEVATED. APPLIED TELE. 116 SINUS TACH ON TELE. NO FURTHER CONCERNS AT THIS TIME. WILL CTM.
--- NOTE | 2018-10-13 19:36 | NUR ---
PATIENT SITTING UP IN BED TALKING ON CELLPHONE. NO COMPLAINTS AT THIS TIME. NO DISTRESS NOTED.
[2018-10-13 20:00] VITALS: BP 117/55
[2018-10-14] VITALS: BP 94/59
--- NOTE | 2018-10-14 02:35 | NUR ---
I have reviewed this patient and I concur with the Shift Assessment completed by the Licensed Practical Nurse today this shift.
--- NOTE | 2018-10-14 02:36 | NUR ---
I have reviewed this patient and I concur with the Shift Assessment completed by the Licensed Practical Nurse today this shift.
--- NOTE | 2018-10-14 03:04 | NUR ---
PATIENT SITTING UP IN BED. NO COMPLAINTS AT THIS TIME. NO DISTRESS NOTED.
--- NOTE | 2018-10-14 03:25 | NUR ---
IV OUT WITH TIP INTACT. NEW IV STARTED X1 ATTEMPT. 22G IN RIGHT FOREARM.
[2018-10-14 04:00] VITALS: BP 125/71
[2018-10-14 04:44] LABS: BASOPHILS 0 % (0-2); EOSINOPHILS 0 % (0-7); HEMOGLOBIN 11.3 g/dL (12-16); IMMATURE GRANULOCYTES 0.3 % (0-5); LYMPHOCYTES 5.9 % (15-50); MCH 31.6 pg (26.0-34.0); MCHC 33.2 g/dL (31.0-37.0); MEAN PLATELET VOLUME 10.3 fL (7.4-10.4); MONOCYTES 3.2 % (2-11); NEUTROPHILS 90.6 % (40-80); PLATELET COUNT 158 10x3/uL (130-400); RBC 3.58 10x6/uL (4.00-5.40); RDW 14.5 % (11.5-14.5)
[2018-10-14 05:04] LABS: ANION GAP 13.5 mmol/L (8-16); CALCIUM 9.8 mg/dL (8.5-10.1); CREATININE - SERUM 1.3 mg/dL (0.6-1.3); PHOSPHOROUS 3.5 mg/dL (2.5-4.9)
[2018-10-14 05:06] LABS: POTASSIUM - SERUM 4.5 mmol/L (3.5-5.1)
--- NOTE | 2018-10-14 06:00 | NUR ---
PATIENT LAYING IN BED. NO COMPLAINTS AT THIS TIME. NO DISTRESS NOTED.
[2018-10-14 07:34] VITALS: BP 106/62
--- NOTE | 2018-10-14 11:30 | NUR ---
PT REFUSED HER SOLU-MEDROL, STATING IT MAKES HER TO HYPER BEFORE SHE GOES TO BED AND THEN SHE CANT SLEEP. CALL LIGHT WITHIN REACH.
[2018-10-14 11:52] VITALS: BP 99/45
[2018-10-14 16:22] VITALS: BP 125/61
--- NOTE | 2018-10-14 19:25 | NUR ---
REPORT RECIEVED AND ROUNDING COMPLETE. PT LAYIG IN BED ALERT AND ORIENTED X4. PT REPORTS THAT SHE HAD A GOOD DAY. PT STATES SHE HAS NO NEEDS AT THIS TIME CALL LIGHT WITHIN REACH AND BED IN LOWEST POSITION AND LOCKED.
[2018-10-14 20:00] VITALS: BP 97/56
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
--- NOTE | 2018-10-14 21:41 | NUR ---
I have reviewed this patient and I concur with the Shift Assessment completed by the Licensed Practical Nurse today this shift.
[2018-10-15] VITALS: BP 103/50
[2018-10-15 04:00] VITALS: BP 118/76
--- NOTE | 2018-10-15 05:16 | NUR ---
WENT IN TO CHECK ON PT AND SHE STATED SHE WAS UPSET BECAUSE I NEVER CAME IN WITH HER MEDICATIONS, I EXPLAINED THAT SHE DIDNT NOT WANT THE SOLU-MEDROL AND SHE HAS TO ASK FOR PAIN MEDICATION BECAUSE IT IS PRN. PT THEN STATED THAT I WAS PLAYING A GAME WITH HER THEN OUT OF NO WHERE FLIPPED THE TOPIC ONTO THE FACT THAT SHE STILL HAS NOT HAD A BOWEL MOVEMENT AND WANTED TO KNOW WHEN SHE WAS GOING TO GET SOMETHING FOR THAT. I ASKED IF SHE WAS IN PAIN AND SHE STATED SHE WAS IN HER ABD FROM BEING UNABLE TO HAVE A BOWEL MOVEMENT. ASKED IF SHE WOULD LIKE HER PAIN MEDICATIONS NOW AND SHE SAID LIKE YOU WILL BRING IT TO ME. PT RATES HER PAIN A 5 OUT OF 10. WILL FOLLOW UP WITH PAIN MEDS AND CONTINUE TO MONITOR.
[2018-10-15 06:15] LABS: BASOPHILS 0 % (0-2); EOSINOPHILS 0.1 % (0-7); HEMATOCRIT 33.7 % (36.0-48.0); HEMOGLOBIN 11.1 g/dL (12-16); IMMATURE GRANULOCYTES 0.5 % (0-5); LYMPHOCYTES 13.3 % (15-50); MCH 31.5 pg (26.0-34.0); MCHC 32.9 g/dL (31.0-37.0); MCV 95.7 fL (80.0-100.0); MEAN PLATELET VOLUME 10.4 fL (7.4-10.4); MONOCYTES 5.3 % (2-11); NEUTROPHILS 80.8 % (40-80); PLATELET COUNT 175 10x3/uL (130-400); RBC 3.52 10x6/uL (4.00-5.40); RDW 15.1 % (11.5-14.5); WBC 12.4 10x3/uL (4.8-10.8)
[2018-10-15 06:44] LABS: CARBON DIOXIDE 26.6 mmol/L (21.0-32.0); CREATININE - SERUM 1.1 mg/dL (0.6-1.3); POTASSIUM - SERUM 4.6 mmol/L (3.5-5.1)
--- NOTE | 2018-10-15 07:40 | NUR ---
REPORT RECIEVED. WILL CONTINUE WITH POC. PT CURRENTLY LYING SEMI FOWLERS. CALL LIGHT W/I REACH. PT IS AA BUT CONFUSED AT TIMES TO PLACE AND SITUATION. PT UP AD MEGHAN. RR EVEN AND UNLABORED RA. R.FOR PIV IS SALINE LOCKED. NO S/S OF DISTRESS NOTED. PT DENIES ANY NEEDS AT THIS TIME. WILL CTM.
[2018-10-15 08:12] VITALS: BP 124/74
--- NOTE | 2018-10-15 10:06 | NUR ---
AM MEDICATIONS ADMINISTERED. PT WAS COMPLIANT WITH ALL MEDICATIONS. ABD INSPECTED. BOWEL SOUNDS ARE HYPOACTIVE IN ALL FOUR QUADRANTS AND PT IS TENDER ESPECIALLY IN THE UPPER LEFT QUADRANT. PT REPORTS OF NOT HAVING BOWEL MOVEMENT FOR SEVERAL DAYS. PT IS AAOX4 AND DENIES ANY FURTHER NEEDS AT THIS TIME. WILL CTM.
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
[2018-10-15 12:12] VITALS: BP 119/65
--- NOTE | 2018-10-15 12:50 | NUR ---
Nutrition Follow Up: Chart reviewed Diet: Regular PO Intake: 100% meal avg BM: 10/12/18 Labs reviewed Meds noted including Solu Medrol Rec continue current diet. RD following.
--- NOTE | 2018-10-15 16:18 | NUR ---
I have reviewed this patient and I concur with the Shift Assessment completed by the Licensed Practical Nurse today this shift.
[2018-10-15 16:30] VITALS: BP 110/78
[2018-10-15] MEDS ORDERED: PREDNISONE10 MG PO (17:43)
[2018-10-15] MEDS ORDERED: ALBUTEROL SULF8.5 GM INH (17:52)
--- NOTE | 2018-10-15 19:23 | NUR ---
EVENING ROUNDS MADE. PT SITTING UP IN BED RESTING. STATES SHE IS STILL CONSTIPATED. PT JUST FINISHED DRINKING HER MAG CITRATE. INFORMED PT TO GIVE IT A FEW MINUTES TO KICK IN. PT STATED OKAY. NO FURTHER CONCERNS AT THIS TIME. INFORMED PT TO CONTINUE TO DRINK WATER WELL. IF MEDICATIONS DO NOT WORK, WILL DO FLEET ENEMA LATER. WILL CTM.
[2018-10-15 20:00] VITALS: BP 125/85
--- NOTE | 2018-10-15 21:16 | NUR ---
ANTONIA KHAN CALLED TO CHECK ON PT STATUS, INFORMED HIM THAT PT HAS NOT HAD A BM. GAVE ORDERS TO KEEP PT OVERNIGHT UNTIL DOCTORS ROUNDS ON PT IN AM. ORDERS GIVEN TO HOLD OFF ON ENEMA UNLESS PT FELT THE NEED FOR IT. INFORMED PT OF THIS CHANGE. PT VERY ANXIOUS AND IN TEARS, STATED THAT SHE WAS SO BACKED UP THAT SHE FELT LIKE SHE NEEDED TO THROW UP. SHE STATED THAT SHE COULD FEEL HER BP RISING AND SOB. UPON CHECKING VITALS. VITALS STABLE. CALLED GODWIN RUIZ, INFORMED HER OF PT STATUS AND ANXIETY, ORDERS GIVEN OR RESTORIL 15 MG QHS PRN. WILL CTM .
--- NOTE | 2018-10-15 21:25 | NUR ---
PT REFUSED TO TAKE RESTORIL. STATED IT MADE HER CRAZY.
--- NOTE | 2018-10-15 22:16 | NUR ---
PT HAD LARGE BROWN BOWEL MOVEMENT
[2018-10-16] VITALS: BP 128/78
--- NOTE | 2018-10-16 03:23 | NUR ---
I have reviewed this patient and I concur with the Shift Assessment completed by the Licensed Practical Nurse today this shift.
--- NOTE | 2018-10-16 05:11 | NUR ---
PT SITTING UP IN BED RESTING AT THIS TIME. PT STATES SHE FEELS RELIEF FROM HAVING 6 BOWEL MOVEMENTS THROUGHOUT THE NIGHT. PT STATES THE BOWEL MOVEMENTS ARE BECOMING MORE CLEAR. PT ABD STILL DISTENDED/SOFT. NO FURTHER CONCERNS/COMPLAINTS AT THIS TIME. WILL CTM.
[2018-10-16 06:00] VITALS: BP 127/77
[2018-10-16 06:45] LABS: BASOPHILS 0 % (0-2); EOSINOPHILS 0 % (0-7); HEMATOCRIT 33.4 % (36.0-48.0); IMMATURE GRANULOCYTES 0.3 % (0-5); LYMPHOCYTES 8.6 % (15-50); MCH 31.4 pg (26.0-34.0); MCHC 32.9 g/dL (31.0-37.0); MCV 95.4 fL (80.0-100.0); MEAN PLATELET VOLUME 10.4 fL (7.4-10.4); MONOCYTES 6.4 % (2-11); NEUTROPHILS 84.7 % (40-80); PLATELET COUNT 162 10x3/uL (130-400); RDW 14.8 % (11.5-14.5)
[2018-10-16 07:12] LABS: ANION GAP 9.4 mmol/L (8-16); CARBON DIOXIDE 28.1 mmol/L (21.0-32.0); POTASSIUM - SERUM 4.5 mmol/L (3.5-5.1)
--- NOTE | 2018-10-16 07:30 | NUR ---
PT IS UP ON SIDE OF BED EATING HER SNACKS. STATES SHE FEELS MUCH BETTER AND HAD SEVERAL BOWEL MOVEMENTS LAST NIGHT. STATES SHE IS LOOKING FORWARD TO [facility] HOME TODAY AND HOPES IT IS EARLY. NO COMPLAINTS/CONCERNS VOICED AT THIS TIME. CL IN REACH, SRX2.
[2018-10-16 08:10] VITALS: BP 110/69
--- NOTE | 2018-10-16 12:50 | NUR ---
I have reviewed this patient and I concur with the Shift Assessment completed by the Licensed Practical Nurse today this shift.
[2018-10-16 16:08] VITALS: BP 106/70
--- NOTE | 2018-10-16 17:02 | NUR ---
PT D/C, WAITING ON SISTER TO PICK HER UP. NO COMPLAINTS, HAPPY TO BE LEAVING THE HOSPITAL.
--- NOTE | 2018-10-16 17:30 | NUR ---
PT ESCORTED OUT VIA WHEELCHAIR TO SISTER'S POV. NO COMPLAINTS OR CONCERNS, TOOK SUPPER WITH HER.
--- NOTE | 2018-10-18 09:58 | MORECARE ---
CASE MANAGEMENT DISCHARGE SUMMARY PATIENT: CL DO UNIT: [id number] ADM DATE: 10/13/18 AGE: 68 : 51 SEX: F ROOM/BED: D.2137 AUTHOR: STEVEN VERONICA PHYSICIAN: REFERRING PHYSICIAN: ELIA TERRY MD DATE OF SERVICE: 10/18/18 Discharge Plan Patient Name: CL DO Facility: [facility]:[place] : 1950 Planned Disposition: Home Anticipated Discharge Date: 10/16/18 Discharge Date: 10/16/2018 Expected LOS: 3 Initial Reviewer: [email or web address] Initial Review Date: 10/18/2018 Generated: 10/18/18 10:58 am Patient Name: CL DO Page [id number] at 0958 All edits/amendments must be made on the electronic document DICTATION DATE: 10/18/18956 UNIT AIDE TECH: DM 10/18/1857 RPT#: [id number] DC DATE:10/16/18 STATUS: DIS IN [facility] [address] [place] [address] END OF REPORT
== END 2018-10-16 17:53 | disposition home or self-care (01) | DRG 191 ==
LOC: D.ER 01:56 → D.M2 05:05 → OBSVTIME 05:05 → D.M2 15:11
PROVIDERS: Emergency Medicine; Family Medicine; ADMIT Family Medicine; ATTEND Family Medicine
DX: J44.1 Chronic obstructive pulmonary disease with (acute) exacerbation (principal); F17.213 Nicotine dependence, cigarettes, with withdrawal; J98.11 Atelectasis; T59.811A Toxic effect of smoke, accidental (unintentional), initial encounter; J70.5 Respiratory conditions due to smoke inhalation; D64.9 Anemia, unspecified; K21.9 Gastro-esophageal reflux disease without esophagitis; E66.01 Morbid (severe) obesity due to excess calories; Z68.37 Body mass index [BMI] 37.0-37.9, adult; F31.9 Bipolar disorder, unspecified

== ENCOUNTER → 2018-11-16 14:15 | Outpatient (CLI) | payer MEDICARE, MEDICAID ==
[2018-10-13 15:24] VITALS: BMI 33.4
[~2018-11-16 14:15] MED LIST changes: +PREDNISONE10 MG PO
== END | disposition home or self-care (01) ==
LOC: D.RAD 14:15
PROVIDERS: ATTEND Internal Medicine Gastroenterology
DX: K59.09 Other constipation (principal); R10.84 Generalized abdominal pain; R11.0 Nausea

== ENCOUNTER 2019-02-10 14:24 | Emergency (ER) | payer MEDICARE, MEDICAID ==
[~2019-02-10] VITALS: Ht 152.4 cm; Wt 73.6 kg
[2019-02-10 14:38] VITALS: Ht 152.4 cm; Wt 73.6 kg
[2019-02-10] MEDS ORDERED: HYDROCORTISONE30 G9 TOPICAL (15:27)
[2019-02-10 15:38] VITALS: BP 133/85
== END 2019-02-10 15:48 | disposition home or self-care (01) ==
LOC: D.ER 14:24
DX: T63.441A Toxic effect of venom of bees, accidental (unintentional), initial encounter (principal); I25.10 Atherosclerotic heart disease of native coronary artery without angina pectoris; J44.9 Chronic obstructive pulmonary disease, unspecified

== ENCOUNTER → 2019-04-05 11:26 | Outpatient (CLI) | payer MEDICARE, MEDICAID ==
[2019-02-10 14:38] VITALS: BMI 31.7
[~2019-04-05 11:26] MED LIST changes: +HYDROCORTISONE30 G9 TOPICAL
--- NOTE | 2019-04-11 17:02 | ST ---
PATIENT:CL DO MEDICAL RECORD: [id number] SEX: F LOCATION:[facility] ORDER #: ADMISSION DATE: 04/05/19 AGE OF PATIENT: 68 REFERRING PHYSICIAN: INTERPRETING PHYSICIAN: VASYL SAHA MD DATE OF SERVICE: 04/05/2019 PROCEDURE: Nuclear stress test. INDICATION: Angina and coronary artery disease, shortness of breath. She was exercised on standard Lexiscan protocol with 33 mCi of sestamibi injected at peak stress, 10 mCi used previously for rest images. FINDINGS: Gated SPECT reveals preserved ejection fraction at 72% with good wall motion and thickening and brightening throughout all segments. SPECT imaging Cardiolite was used as myocardial fusion agent. There is homogeneous uptake throughout all segments at rest and stress with no evidence of inducible ischemia or previous infarction. OVERALL IMPRESSION: 1. This is a normal nuclear stress test with no evidence of inducible ischemia or previous infarction. 2. Gated SPECT reveals a preserved ejection fraction at 72%. In this patient with ongoing symptomatology, the current scan does not suggest the presence of hemodynamically significant coronary artery disease. Evaluate noncardiac etiology of chest pain. TRANSINT:[id number] Voice Confirmation ID: [id number] DOCUMENT ID: [id number] VASYL SAHA MD at 1702 CC: [id number] DICTATION DATE: 04/05/19 1555 SURVEYING TECHNICIAN: 04/06/19 0014 DEP CLI 04/05/[id number] [place] [address]
== END | disposition home or self-care (01) ==
LOC: D.HCCARDIO 11:26
PROVIDERS: ATTEND Internal Medicine Cardiovascular Disease
DX: I25.10 Atherosclerotic heart disease of native coronary artery without angina pectoris (principal)

== ENCOUNTER → 2019-04-27 12:27 | Outpatient (CLI) | payer MEDICARE, MEDICAID ==
[2019-02-10 14:38] VITALS: BMI 31.7
== END | disposition home or self-care (01) ==
LOC: D.RAD 12:27
PROVIDERS: ATTEND Internal Medicine Pulmonary Disease
DX: R07.89 Other chest pain (principal)

== ENCOUNTER 2019-05-02 11:49 | Day surgery (SDC) | payer MEDICARE, MEDICAID ==
[~2019-05-02] VITALS: Ht 152.4 cm; Wt 72.7 kg
[2019-05-02 12:27] LABS: HEMATOCRIT 35.9 % (36.0-48.0); HEMOGLOBIN 11.7 g/dL (12-16); MCH 31.5 pg (26.0-34.0); MCHC 32.6 g/dL (31.0-37.0); MCV 96.8 fL (80.0-100.0); MEAN PLATELET VOLUME 10.5 fL (7.4-10.4); RBC 3.71 10x6/uL (4.00-5.40); RDW 13.9 % (11.5-14.5); WBC 4.1 10x3/uL (4.8-10.8)
[2019-05-02] MEDS ORDERED: PAXIL20 MG PO (14:48)
[2019-05-02] MEDS ORDERED: LINZESS145 MCG PO (14:50)
[2019-05-02] MEDS ORDERED: ATIVAN0.5 MG PO (14:50)
[2019-05-02] MEDS ORDERED: OMEPRAZOLE40 MG PO (14:51)
[2019-05-02] MEDS ORDERED: IBUPROFEN800 MG PO (14:51)
[2019-05-02 14:55] VITALS: Ht 152.4 cm; Wt 72.7 kg
--- NOTE | 2019-05-02 15:13 | NUR ---
DR. MONTANO NOTIFIED AND REVIEWED PATIENT'S RESULTS. PATIENT IS AT LOW RISK PER DR. MONTANO. RESORCES REVIEWED WITH PATIENT AND SHE VERBALIZES UNDER- STANDING. SHE HAS BEEN IN THERAPY SINCE 1980.
--- NOTE | 2019-05-02 19:38 | NUR ---
1605 RETURNED FROM GI. AWAKE AND TOLERATED A FULL L IQ TRAY. AT BEDSIDE TALKING TO PT. 1630 IV REMOVED AND PRESSURE HELD. 1645 PT DISCHARGED HOME
--- NOTE | 2019-05-03 11:06 | OP ---
PATIENT NAME: CL DO MEDICAL RECORD: [id number] :52 LOCATION:[facility] ADMISSION DATE: SURGEON: JORGE DOUGHERTY DO DATE OF OPERATION: 05/02/2019 PROCEDURE: EGD with biopsies. INDICATIONS FOR PROCEDURE: Dysphagia, heartburn, generalized abdominal pain, nausea, abnormal weight loss. SCOPE: Olympus video gastroscope. MEDICATIONS: Propofol 190 mg IV per anesthesia. ESTIMATED BLOOD LOSS: Minimal. COMPLICATIONS: None. FINDINGS: Informed consent was given. The patient was made comfortable with the above medication. After reaching an adequate level of sedation by slow IV push, the patient was placed on her left side. The endoscope was advanced under direct visualization through the mouth to the second portion of the duodenum with ease. The entire esophagus appeared normal down to the GE junction. 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 Cold forceps biopsies were taken at the squamocolumnar junction to submit for histopathology and to rule out the presence of Huerta's. The endoscope was advanced beyond the GE junction into the stomach and retroflexed to view the cardia, where a small sliding hiatal hernia was present. The fundus of the stomach appeared normal. Throughout the body and antrum and prepyloric regions, there were appearances consistent with mild gastritis, consisting of erythema and granularity. The mucosa was also friable. Random cold forceps biopsies were taken from the antrum to submit for histopathology and to rule out the presence of H. pylori. The endoscope was advanced beyond the pylorus into the duodenum, which appeared normal down to the second portion. The endoscope was then withdrawn from the patient. The patient tolerated the procedure well and there were no complications. IMPRESSION: 1. 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 Biopsies taken. 2. Small sliding hiatal hernia. 3. Mild gastritis. PLAN AND RECOMMENDATIONS: 1. Discharge home when recovery parameters are met. 2. Follow up biopsy specimen results. 3. GERD diet and reflux precautions. 4. Renew Protonix 40 mg daily times 60 days. 5. Carafate tablets dissolved 1 tablet in 20 mL of water and take 3 times daily times 60 tablets. 6. Follow up in GI clinic in 1 month. 7. We will order a gastric emptying scan to rule out gastroparesis based on symptoms of nausea, vomiting, abdominal pain, bloating, pain with eating. TRANSINT:[id number] Voice Confirmation ID: [id number] DOCUMENT ID: [id number] OPERATIVE REPORT [id number] CL DO NATHAN A DO at 1106 CC: [id number] DICTATION DATE: 05/02/19 1603 [employer]OP[employer] CONSULTANT: 05/03/19 0021 [facility] 05/02/19 [id number] [place] [address]
== END 2019-05-02 16:45 | disposition home or self-care (01) ==
LOC: D.OPS 11:49
PROVIDERS: Anesthesiology; ATTEND Internal Medicine Gastroenterology
DX: R13.10 Dysphagia, unspecified (principal); R12 Heartburn; R10.84 Generalized abdominal pain; R11.0 Nausea; R63.4 Abnormal weight loss

== ENCOUNTER 2019-05-21 19:37 | Emergency (ER) | payer MEDICARE, MEDICAID ==
[~2019-05-21] VITALS: Ht 152.4 cm; Wt 69.1 kg
[~2019-05-21 19:37] MED LIST changes: +ATIVAN0.5 MG PO; +IBUPROFEN800 MG PO; +LINZESS145 MCG PO; +OMEPRAZOLE40 MG PO; +PAXIL20 MG PO
[2019-05-21 19:43] VITALS: Ht 152.4 cm; Wt 69.1 kg
[2019-05-21] MEDS ORDERED: CYCLOBENZAPRINE10 MG PO (20:40)
[2019-05-21] MEDS ORDERED: PREDNISONE10 MG PO (20:40)
[2019-05-21] MEDS ORDERED: ULTRAM50 MG PO (20:41)
[2019-05-21 21:13] VITALS: BP 114/74
== END 2019-05-21 20:56 | disposition home or self-care (01) ==
LOC: D.ER 19:37
DX: S29.012A Strain of muscle and tendon of back wall of thorax, initial encounter (principal); W19.XXXA Unspecified fall, initial encounter; M62.830 Muscle spasm of back; Z86.73 Personal history of transient ischemic attack (TIA), and cerebral infarction without residual deficits; Z96.9 Presence of functional implant, unspecified; J44.9 Chronic obstructive pulmonary disease, unspecified; M19.91 Primary osteoarthritis, unspecified site; F17.210 Nicotine dependence, cigarettes, uncomplicated

== ENCOUNTER → 2019-06-17 08:43 | Outpatient (CLI) | payer MEDICARE, MEDICAID ==
[2019-05-21 19:43] VITALS: BMI 29.7
[~2019-06-17 08:43] MED LIST changes: +CYCLOBENZAPRINE10 MG PO; +ULTRAM50 MG PO
== END | disposition home or self-care (01) ==
LOC: D.NM 08:43
PROVIDERS: ATTEND Internal Medicine Gastroenterology
DX: K59.00 Constipation, unspecified (principal); R11.0 Nausea; R10.13 Epigastric pain; R63.4 Abnormal weight loss

== ENCOUNTER 2019-08-29 14:53 | Emergency (ER) | payer MEDICARE, MEDICAID ==
[~2019-08-29] VITALS: Ht 152.4 cm; Wt 72.7 kg
[2019-08-29 15:56] VITALS: Ht 152.4 cm; Wt 72.7 kg
[2019-08-29 16:21] LABS: BASOPHILS 0.3 % (0-2); EOSINOPHILS 4.6 % (0-7); HEMATOCRIT 39.2 % (36.0-48.0); HEMOGLOBIN 12.6 g/dL (12-16); IMMATURE GRANULOCYTES 0.2 % (0-5); LYMPHOCYTES 40.5 % (15-50); MCH 31.1 pg (26.0-34.0); MCHC 32.1 g/dL (31.0-37.0); MCV 96.8 fL (80.0-100.0); MEAN PLATELET VOLUME 10.1 fL (7.4-10.4); MONOCYTES 9.6 % (2-11); NEUTROPHILS 44.8 % (40-80); RBC 4.05 10x6/uL (4.00-5.40); RDW 14.6 % (11.5-14.5); WBC 6.1 10x3/uL (4.8-10.8)
[2019-08-29 16:33] LABS: APTT 29.9 SECONDS (22.8-39.4); INR 0.94 (0.85-1.17); PROTIME 12.5 SECONDS (11.6-15.0)
[2019-08-29 16:34] LABS: CALC OSMOLALITY 276 mosm/kg (275-300); CARBON DIOXIDE 28.3 mmol/L (21.0-32.0); CHLORIDE - SERUM 104 mmol/L (98-107); CREATININE - SERUM 1.2 mg/dL (0.6-1.3); GLUCOSE 97 mg/dL (74-106); POTASSIUM - SERUM 4.2 mmol/L (3.5-5.1); SODIUM 139 mmol/L (136-145); UREA NITROGEN 11 mg/dL (7-18); eGFR NON AFRICAN AMERICAN 47 mL/min (90-120)
[2019-08-29 16:35] LABS: PLATELET COUNT 184 10x3/uL (130-400)
[2019-08-29 17:08] LABS: ALBUMIN 3.7 g/dL (3.4-5.0); ALKALINE PHOSPHATASE 123 U/L (30-120); ALT (SGPT) 25 U/L (10-68); BILIRUBIN - TOTAL 0.24 mg/dL (0.2-1.3); CKMB 1.9 U/L (0.0-3.6); CREATINE KINASE 109 UL (21-215); PRO BNP 47 pg/mL (0-125); PROTEIN - SERUM 7.1 g/dL (6.4-8.2); TROPONIN-I < 0.017 ng/mL (0.000-0.060)
[2019-08-29 18:11] VITALS: BP 109/72
== END 2019-08-29 18:12 | disposition home or self-care (01) ==
LOC: D.ER 14:53
PROVIDERS: Family Medicine
DX: J44.1 Chronic obstructive pulmonary disease with (acute) exacerbation (principal); Z72.0 Tobacco use; Z86.73 Personal history of transient ischemic attack (TIA), and cerebral infarction without residual deficits; R07.89 Other chest pain; R51 Headache; H92.03 Otalgia, bilateral

== ENCOUNTER 2019-09-22 20:36 | Emergency (ER) | payer MEDICARE, MEDICAID ==
[~2019-09-22] VITALS: Ht 152.4 cm; Wt 75.0 kg
[2019-09-22 20:48] VITALS: Ht 152.4 cm; Wt 75.0 kg
[2019-09-22 21:40] VITALS: BP 115/56
== END 2019-09-22 21:40 | disposition home or self-care (01) ==
LOC: D.ER 20:36
DX: S91.131A Puncture wound without foreign body of right great toe without damage to nail, initial encounter (principal); W22.8XXA Striking against or struck by other objects, initial encounter; Y93.9 Activity, unspecified; Y92.9 Unspecified place or not applicable; J44.9 Chronic obstructive pulmonary disease, unspecified; Z86.73 Personal history of transient ischemic attack (TIA), and cerebral infarction without residual deficits

== ENCOUNTER → 2019-11-09 09:03 | Outpatient (CLI) | payer MEDICARE, MEDICAID ==
[2019-09-22 20:48] VITALS: BMI 32.2
== END | disposition home or self-care (01) ==
LOC: D.LAB 09:03
PROVIDERS: ATTEND Internal Medicine Pulmonary Disease
DX: J44.9 Chronic obstructive pulmonary disease, unspecified (principal); Z11.59 Encounter for screening for other viral diseases

== ENCOUNTER → 2019-11-15 15:05 | Outpatient (CLI) | payer MEDICARE, MEDICAID ==
[2019-09-22 20:48] VITALS: BMI 32.2
== END | disposition home or self-care (01) ==
LOC: D.RT 08-01 10:00 → D.RAD 08-01 10:45 → D.RT 15:00
PROVIDERS: ATTEND Internal Medicine Pulmonary Disease
DX: J44.9 Chronic obstructive pulmonary disease, unspecified (principal); R07.89 Other chest pain

== ENCOUNTER 2020-08-04 00:32 | Emergency (ER) | payer MEDICARE, MEDICAID ==
[~2020-08-04] VITALS: Ht 152.4 cm; Wt 68.2 kg
[2020-08-04 00:36] VITALS: BP 127/77; Ht 152.4 cm; Wt 68.2 kg
[2020-08-04] MEDS ORDERED: MOBIC7.5 MG PO (01:59)
== END 2020-08-04 02:00 | disposition home or self-care (01) ==
LOC: D.ER 00:32
DX: M25.561 Pain in right knee (principal); M25.562 Pain in left knee; W19.XXXA Unspecified fall, initial encounter; Y93.9 Activity, unspecified; Y92.9 Unspecified place or not applicable; I63.9 Cerebral infarction, unspecified; J44.9 Chronic obstructive pulmonary disease, unspecified; Z72.0 Tobacco use

== ENCOUNTER → 2020-08-14 14:04 | Outpatient (CLI) | payer MEDICARE, MEDICAID ==
[2020-08-04 00:36] VITALS: BMI 29.3
[~2020-08-14 14:04] MED LIST changes: +MOBIC7.5 MG PO
== END | disposition home or self-care (01) ==
LOC: D.LAB 14:04
PROVIDERS: ATTEND Internal Medicine Pulmonary Disease
DX: J44.9 Chronic obstructive pulmonary disease, unspecified (principal); Z11.52 Encounter for screening for COVID-19